=== PATIENT | female | born 1960 | race Caucasian/White ===

== ENCOUNTER 2017-03-11 19:12 | Inpatient (IN) ==
--- NOTE | 2017-03-11 21:14 | Emergency Department Note ---
Disposition Clinical Impression: Cerebrovascular accident Qualifiers: CVA mechanism: other Qualified Code(s): I63.8 - Other cerebral infarction Disposition: Admitted As Inpatient Condition: Good General Adult HPI - General Chief complaint: ED Neuro Symptoms/Deficit Stated complaint: possible tia yesterday weakness in left leg Time Seen by Provider: 03/11/17 20:36 Source: patient Limitations: no limitations Nursing Notes Reviewed: Yes Vital Signs Reviewed: Yes - History of Present Illness HPI Narrative: History began having left lower extremities weakness 24 hours ago while she was in the shower. States that it got better this morning however got worse throughout the day. Now she has a hard time walking because of it. Denies fevers or chills. Denies shortness of breath or chest pain. Pain Scale: 3 - Related Data Home Medications Medication Instructions Recorded Confirmed ALPRAZolam [Xanax 1 MG Tablet] 1 mg PO TID PRN 04/11/16 03/12/17 OLANZapine [Zyprexa] 5 mg PO HS 04/11/16 03/12/17 OXcarbazepine [Oxcarbazepine] 1,200 mg PO HS 04/11/16 03/12/17 OXcarbazepine [Oxcarbazepine] 600 mg PO QAM 04/11/16 03/12/17 Promethazine [Phenergan] 25 mg PO Q6HR PRN 03/12/17 03/12/17 Rizatriptan Benzoate [Maxalt] 5 mg PO DAILY 03/12/17 03/12/17 Allergies Allergy/AdvReac Type Severity Reaction Status Date / Time isosorbide Allergy Vomiting Verified 12/09/15 09:09 Penicillins [PCN] Allergy Rash Verified 05/23/15 11:18 All systems ED: reviewed and negative except as stated. Constitutional: Denies: fever, chills Eyes: Denies: vision change ENT ED: Denies: congestion Cardiovascular: Denies: chest pain, palpitations, syncope Respiratory: Denies: cough, dyspnea, wheezes Gastrointestinal: Denies: abdominal pain, nausea, vomiting, diarrhea, hematemesis, melena, hematochezia Genitourinary: Denies: urgency, dysuria, frequency Musculoskeletal: Reports: other (Left lower extremity weakness.). Denies: back pain, neck pain Integumentary: Denies: rash, abrasion Neurological: Reports: abnormal gait (Due to weakness and left lower extremities.). Denies: headache, weakness, numbness, paresthesias Past Medical History - Past Medical History Attestation: Yes The following information was validated with the patient. Source: patient Medical history: Reports: COPD, coronary artery disease, GERD, hyperlipidemia, hypertension, migraine, other Surgical history: Reports: cholecystectomy, hysterectomy, other (Bladder repair surgeries) Psychiatric history: Reports: anxiety, bipolar, depression - Social History Smoking Status: Current every day smoker Smokeless Tobacco Status: Yes Alcohol use: Reports: none Drug use: Reports: none Physical Exam - General Limitations: no limitations General appearance: alert, in no apparent distress - Head Head exam: atraumatic, normocephalic, normal inspection - Eye Eye exam: Present: normal appearance, PERRL, EOMI. Absent: scleral icterus - ENT ENT exam: normal exam, normal oropharynx, mucous membranes moist - Neck Neck exam: Present: normal inspection, full ROM, trachea midline, other ( Weakness when patient moves her head to the left and tries to press into my hand.) - Chest Chest inspection: Present: normal inspection, symmetric chest wall rise - Respiratory Respiratory exam: Present: normal lung sounds bilaterally. Absent: respiratory distress - Cardiovascular Cardiovascular exam: Present: regular rate, normal rhythm, normal heart sounds - Abdominal Exam Abdominal exam: Present: soft, Non-Tender, normal bowel sounds. Absent: tenderness, distention, guarding, rebound, rigidity, organomegaly - Extremities Exam Extremities exam: Present: normal inspection, full ROM, normal capillary refill , other (Spastic weakness in the left upper and left lower extremity.). Absent : tenderness, pedal edema - Back Exam Back exam: Present: normal inspection, full ROM. Absent: tenderness, CVA tenderness (R), CVA tenderness (L) - Neurological Exam Neurological exam: Present: alert, oriented X3 - Psychiatric Psychiatric exam: Present: normal affect, normal mood - Skin Skin exam: Present: warm, dry, intact, normal color. Absent: rash, cyanosis, diaphoresis, erythema Course Course Narrative: Female patient presenting to emergency department when he developed left lower extremity weakness. She states this started around 5 to 6 PM last night while she was in the shower. She states she noticed that she could not hold herself up on her left leg. States that she had trouble walking after that. However when she woke up this morning she thought that her symptoms have resolved so she went to work. She states that she still had trouble ambulating however it got worse throughout the day. She denies any blurry vision. She denies any left upper extremity weakness. She states that she does get headaches frequently but these are no different than her normal. She states that this is actually very mild headache she has today. She has taken Excedrin for it. On exam she is mentating appropriately. Her pupils are equal and reactive to light. She has no facial droop. She does have left upper extremity spastic movement and weakness. She also has left lower extremity spastic movement and weakness. She has weakness whenever she pushes her head to the left. Her lung sounds are clear heart tones are normal. She tracks well. She has good finger to nose and heel to maldonado. This is never happened to her before. She states she googled her symptoms last night and read that it could possibly be a TIA and it should have resolved within 24 hours however this is not resolved and she is concerned. Patient is out of the window for stroke candidate TPA. We will scan patient's having get a basic lab workup on her. She is complaining of left hip soreness that she states is from how she is having to use her leg since it is so weak. She is refusing pain medication at this time. - Reevaluation(s) Reevaluation #1: We will admit patient to the hospital for serial neurologic exams and neurology consult. - Consultations Consultation #1: Spoke with Dr. Varela is advising to give the patient aspirin and he will see the patient here. Vital Signs Temperature 98.3 F 03/11/17 19:42 Pulse Rate 102 03/11/17 19:42 Respiratory Rate 18 03/11/17 19:42 Blood Pressure 205/97 03/11/17 19:42 O2 Sat by Pulse Oximetry 96 03/11/17 19:42 Temperature 98.3 F 03/12/17 07:02 Pulse Rate 88 03/12/17 07:02 Respiratory Rate 16 03/12/17 07:02 Blood Pressure 133/83 03/12/17 07:02 O2 Sat by Pulse Oximetry 94 03/12/17 07:02 Oxygen Delivery Oxygen Delivery Room Air Medical Decision Making - Medical Records Medical records reviewed: Yes I reviewed the patient's medical records. - Lab Data Lab results reviewed: Yes I reviewed the patient's lab results. Result diagrams: 03/12/17 04:12 03/12/17 04:12 Lab Results 03/11/17 03/11/17 03/11/17 Range/Units 20:58 20:58 21:25 WBC 7.0 (4.3-11.1) K/mcL RBC 4.26 (3.82-4.97) M/mcL Hgb 12.8 (11.5-15.4) g/dL Hct 37.3 (35.3-44.9) % MCV 87.6 (83.0-100.0) fL MCH 30.0 (28.0-33.3) pg MCHC 34.3 (31.6-35.5) g/dL RDW 13.4 (11.5-14.5) % Plt Count 355 (140-400) K/mcL MPV 8.6 L (9.4-12.4) fL Immature Gran % 0.3 (0-4) % Seg Neutrophils % 51.1 % Lymphocytes % 37.0 % Monocytes % 8.9 % Eosinophils % 1.4 % Basophils % 1.3 % Neutrophils # 3.6 (1.6-8.9) K/mcL Lymphocytes # 2.6 (0.6-4.6) K/mcL Monocytes # 0.6 (0.0-1.3) K/mcL Eosinophils # 0.1 (0.0-0.6) K/mcL Basophils # 0.1 (0.0-0.2) K/mcL Immature Plt Fraction 1.6 (1.1-6.1) % Sodium (136-145) mEq/L Potassium (3.5-4.5) mEq/L Chloride (98-109) mEq/L Carbon Dioxide (19-29) mEq/L BUN (7-20) mg/dL Creatinine (0.57-1.11) mg/dL Est GFR ( Amer) (> 60) Est GFR (Non-Af Amer) (> 60) BUN/Creatinine Ratio (6-26) Glucose (70-99) mg/dL Calculated Osmolality (280-300) Calcium (8.6-10.8) mg/dL Phosphorus (2.3-4.7) mg/dL Magnesium (1.6-2.6) mg/dL Total Bilirubin (0.2-1.2) mg/dL AST (5-34) Units/L ALT (0-55) Units/L Alkaline Phosphatase (38-126) Units/L Troponin I (0-0.03) ng/mL Serum Total Protein (6.0-8.3) g/dL Albumin (3.5-5.0) g/dL Globulin (2.4-3.5) g/dL Albumin/Globulin Ratio (1.1-2.2) Urine Color Yellow (Yellow) Urine Clarity Clear (Clear) Urine pH 6.5 (5.0-8.0) pH Units Ur Specific Hendricks 1.011 (1.010-1.025) Urine Protein Negative (Neg-Trace) mg/dL Urine Glucose (UA) Normal (Normal) mg/dL Urine Ketones Negative (Negative) mg/dL Urine Blood Moderate H (Negative) Urine Nitrite Negative (Negative) Urine Bilirubin Negative (Negative) Urine Urobilinogen Normal (Normal) mg/dL Ur Leukocyte Esterase Negative (Negative) Urine Microscopic RBC 0-3 (0-3) per hpf Urine Microscopic WBC 0-3 (0-3) per hpf Ur Squamous Epith Cells Moderate H (None-Few) per lpf Urine Bacteria None Seen (None-Few) per hpf Hyaline Casts None Seen (None-Few) per lpf Ur Culture Indicated? NO (NO) Urine Opiates Screen Negative (Ljrzia=366) ng/mL Ur Barbiturates Screen Negative (Wzceoa=400) ng/mL Ur Phencyclidine Scrn Negative (Cutoff=25) ng/mL Ur Amphetamines Screen Negative (Pzaocr=0852) ng/mL U Benzodiazepines Scrn Negative (Xudcvi=588) ng/mL Urine Cocaine Screen Negative (Cutoff= 300) ng/mL U Marijuana (THC) Screen Negative (Cutoff = 50) ng/mL 03/11/17 03/11/17 Range/Units 21:25 21:25 WBC (4.3-11.1) K/mcL RBC (3.82-4.97) M/mcL Hgb (11.5-15.4) g/dL Hct (35.3-44.9) % MCV (83.0-100.0) fL MCH (28.0-33.3) pg MCHC (31.6-35.5) g/dL RDW (11.5-14.5) % Plt Count (140-400) K/mcL MPV (9.4-12.4) fL Immature Gran % (0-4) % Seg Neutrophils % % Lymphocytes % % Monocytes % % Eosinophils % % Basophils % % Neutrophils # (1.6-8.9) K/mcL Lymphocytes # (0.6-4.6) K/mcL Monocytes # (0.0-1.3) K/mcL Eosinophils # (0.0-0.6) K/mcL Basophils # (0.0-0.2) K/mcL Immature Plt Fraction (1.1-6.1) % Sodium 133 L (136-145) mEq/L Potassium 3.5 (3.5-4.5) mEq/L Chloride 99 (98-109) mEq/L Carbon Dioxide 25 (19-29) mEq/L BUN 9 (7-20) mg/dL Creatinine 0.57 (0.57-1.11) mg/dL Est GFR ( Amer) > 60 (> 60) Est GFR (Non-Af Amer) > 60 (> 60) BUN/Creatinine Ratio 16 (6-26) Glucose 82 (70-99) mg/dL Calculated Osmolality 274 L (280-300) Calcium 9.7 (8.6-10.8) mg/dL Phosphorus 3.6 (2.3-4.7) mg/dL Magnesium 2.1 (1.6-2.6) mg/dL Total Bilirubin < 0.3 (0.2-1.2) mg/dL AST 16 (5-34) Units/L ALT 13 (0-55) Units/L Alkaline Phosphatase 91 (38-126) Units/L Troponin I 0.01 (0-0.03) ng/mL Serum Total Protein 7.8 (6.0-8.3) g/dL Albumin 4.2 (3.5-5.0) g/dL Globulin 3.6 H (2.4-3.5) g/dL Albumin/Globulin Ratio 1.2 (1.1-2.2) Urine Color (Yellow) Urine Clarity (Clear) Urine pH (5.0-8.0) pH Units Ur Specific Hendricks (1.010-1.025) Urine Protein (Neg-Trace) mg/dL Urine Glucose (UA) (Normal) mg/dL Urine Ketones (Negative) mg/dL Urine Blood (Negative) Urine Nitrite (Negative) Urine Bilirubin (Negative) Urine Urobilinogen (Normal) mg/dL Ur Leukocyte Esterase (Negative) Urine Microscopic RBC (0-3) per hpf Urine Microscopic WBC (0-3) per hpf Ur Squamous Epith Cells (None-Few) per lpf Urine Bacteria (None-Few) per hpf Hyaline Casts (None-Few) per lpf Ur Culture Indicated? (NO) Urine Opiates Screen (Utemjd=370) ng/mL Ur Barbiturates Screen (Gzerfz=239) ng/mL Ur Phencyclidine Scrn (Cutoff=25) ng/mL Ur Amphetamines Screen (Kbyvtr=3167) ng/mL U Benzodiazepines Scrn (Filubd=986) ng/mL Urine Cocaine Screen (Cutoff= 300) ng/mL U Marijuana (THC) Screen (Cutoff = 50) ng/mL - Radiology Data Radiology results reviewed: Yes I reviewed the patient's radiology results. Chest X-Ray 03/11/17 21:09 IMPRESSION: Stable portable study. D/ / Clemencia Yuan Cha, MD / Clemencia Yuan Cha, MD Interpreting Provider: Celmencia Yuan Cha, MD Head CT 03/11/17 21:09 IMPRESSION: No acute intracranial abnormality. D/ / Clemencia Yuan Cha, MD / Clemencia Yuan Cha, MD Interpreting Provider: Clemencia Yuan Cha, MD Critical Care Time Critical Care Time: Yes Total Critical Care Time: 45 Attestation: Critical care performed: Time is exclusive of separately billable procedures. Time includes: direct patient care, patient reassessment, coordination of patient care, interpretation of data (laboratory data, radiology data, and respiratory data), review of patient's medical records, medical consultation and documentation of patient care. Procedures included in critical care time: Procedures excluded from critical care time: Attestation Statement - Attestation Attestation: IClemente MD, personally evaluated this patient and discussed their management with the resident physician. I reviewed the resident's note and agree with the documented findings, medical decision making, and plan of care. 57-year-old female presents to the emergency department with a complaint of left -sided weakness which started about 5 PM yesterday. Patient states that she was in the shower and when she tried to raise her right leg to wash it that her left leg was too weak to hold her up and she nearly fell. Said she noticed that she was unable to lift her left leg that time. She denies any numbness or tingling in the leg but states that it was just weak and would not work right. Symptoms have persisted all day today. She thinks it may have slightly improved but is still present. She also however has noticed a little bit of weakness in her left arm as well. She has been able to ambulate but states with some difficulty. She has had daily compensate for the left leg weakness. No difficulty with speech or swallowing. No blurred vision or double vision. No headache. Patient actually states that this is unusual because she has chronic headaches and states that she usually has a left-sided headache all the time but has noticed that today she has not had her usual headache. On examination patient is a well-developed well-nourished well-appearing female in no acute distress. She is alert and oriented 3. There is no cyanosis or diaphoresis. No obvious facial droop. Cranial nerves intact. There is slight weakness of her left patrol guard and left arm as well as some weakness of the left lower extremity. Neck is supple and nontender with full range of motion. No JVD. No carotid bruits. Chest is nontender to palpation. Breath sounds are clear and equal bilaterally. Heart regular rate and rhythm. Abdomen soft and nontender with normal bowel sounds. Head CT negative. Labs reviewed and unremarkable. Chest x-ray negative. The neurologist on-call, Dr. Varela, was consulted and patient was discussed with him. He recommended starting the patient on aspirin and admission by the hospitalist and he will consult on the patient in the hospital. The hospitalist , Dr. Wilson, was consulted and accepted admission of the patient. NIH Stroke Scale - Level of Consciousness LOC: Alert - LOC Questions LOC Questions: Answers both correctly - LOC Commands LOC Commands: Performs both correctly - Best Gaze Best Gaze: Normal - Visual Visual: No visual loss - Facial Palsy Facial Palsy: Normal - Motor Arms Motor Arm-Left: No drift for 10 seconds Motor Arm-Right: No drift for 10 seconds - Motor Legs Motor Leg-Left: No drift for 5 seconds Motor Leg-Right: Drift, does NOT hit bed - Limb Ataxia Limb Ataxia: Absent of affected limb too weak to perform exam - Sensory Sensory: Normal - Best Language Best Language: No aphasia - Dysarthria Dysarthria: Normal - Extinction and Inattention Extinction and Inattention: Normal - NIHSS Total Score NIHSS Total Score: 1
[2017-03-11 21:19] LABS: Bilirubin,Urine Negative (Negative); Blood,Urine Moderate (Negative); Clarity,Urine Clear (Clear); Color,Urine Yellow (Yellow); Glucose,Urine (UA) Normal (Normal); Ketones,Urine Negative (Negative); Leukocyte Esterase,Urine Negative (Negative); Nitrite,Urine Negative (Negative); PH,Urine 6.5 pH Units (5.0-8.0); Protein,Urine Negative (Neg-Trace); Specific Gravity,Urine 1.011 (1.010-1.025); Urobilinogen,Urine Normal (Normal)
[2017-03-11 21:23] LABS: Amphetamine Screen,Urine Negative ng/mL (Cutoff=1000); Barbiturate Screen,Urine Negative ng/mL (Cutoff=200); Benzodiazepines Screen,Urine Negative ng/mL (Cutoff=200); Cannabinoid Screen,Urine Negative ng/mL (Cutoff = 50); Cocaine Screen,Urine Negative ng/mL (Cutoff= 300); Opiate Screen,Urine Negative ng/mL (Cutoff=300); Phencyclidine Screen,Urine Negative ng/mL (Cutoff=25)
[2017-03-11 21:25] LABS: Bacteria,Urine None Seen per hpf (None-Few); Hyaline Casts,Urine None Seen per lpf (None-Few); RBC,Urine 0-3 per hpf (0-3); Squamous Epithelial Cell,Urine Moderate per lpf (None-Few); WBC,Urine 0-3 per hpf (0-3)
[2017-03-11 21:32] LABS: Basophils # 0.1 K/mcL (0.0-0.2); Basophils % 1.3 %; Eosinophils # 0.1 K/mcL (0.0-0.6); Eosinophils % 1.4 %; Hematocrit 37.3 % (35.3-44.9); Hemoglobin 12.8 g/dL (11.5-15.4); Immature Granulocytes % 0.3 % (0-4); Immature Platelets 1.6 % (1.1-6.1); Lymphocytes # 2.6 K/mcL (0.6-4.6); Mean Corpuscular HGB Conc 34.3 g/dL (31.6-35.5); Mean Corpuscular Volume 87.6 fL (83.0-100.0); Mean Platelet Volume 8.6 fL (9.4-12.4); Monocytes # 0.6 K/mcL (0.0-1.3); Monocytes % 8.9 %; Neutrophils # 3.6 K/mcL (1.6-8.9); Platelet Count 355 K/mcL (140-400); Red Blood Count 4.26 M/mcL (3.82-4.97); Red Cell Distribution Width 13.4 % (11.5-14.5); Segmented Neutrophils % 51.1 %
[2017-03-11 21:45] LABS: Alanine Aminotransferase 13 Units/L (0-55); Albumin 4.2 g/dL (3.5-5.0); Albumin/Globulin Ratio 1.2 (1.1-2.2); Alkaline Phosphatase 91 Units/L (38-126); Aspartate Amino Transferase 16 Units/L (5-34); BUN/Creatinine Ratio 16 (6-26); Blood Urea Nitrogen 9 mg/dL (7-20); Calcium 9.7 mg/dL (8.6-10.8); Carbon Dioxide 25 mEq/L (19-29); Chloride 99 mEq/L (98-109); Globulin 3.6 g/dL (2.4-3.5); Glucose 82 mg/dL (70-99); Magnesium 2.1 mg/dL (1.6-2.6); Osmolality,Calculated 274 (280-300); Phosphorous 3.6 mg/dL (2.3-4.7); Potassium 3.5 mEq/L (3.5-4.5); Sodium 133 mEq/L (136-145); Total Protein 7.8 g/dL (6.0-8.3); eGFR For African Americans > 60 (> 60); eGFR For Non-African Americans > 60 (> 60)
[2017-03-11 21:59] LABS: Bilirubin,Total < 0.3 mg/dL (0.2-1.2)
[2017-03-11] MEDS: Nicotine 14 MG PATCH.TD24 TD SCH (22:35)
[2017-03-11] MEDS ORDERED: Aspirin 81 MG TAB.CHEW PO STA (23:42)
[2017-03-12] MEDS ORDERED: Acetaminophen 325 MG TABLET PO ONE (00:40)
[2017-03-12] MEDS: ALPRAZolam 1 MG TABLET PO PRN ×2 (02:40→08:50)
[2017-03-12] MEDS: OLANZapine 5 MG TAB.RAPDIS PO SCH ×2 (02:41→21:46)
--- NOTE | 2017-03-12 03:26 | Internal Med History&Physical ---
<Micah Aggarwal - Last Filed: 03/12/17 03:19> Date of Encounter: 03/12/17 Time of Encounter: 03:19 Assessment and Plan (1) TIA (transient ischemic attack) Current visit: Yes Status: Suspected 57 y/o female presents with LLE weakness sudden onset [address] negative symptoms not resovled Neuro exam: LUE and LLE 3/5 strength with spacticy. Left DTR 1/4 (biceps, triceps, patellar, Achilles), abnormal left finger to nose, abnormal left heel discussion, normal Romberg test, gait: When patient walks she drags her left lower extremity. History of TIA, 2006 with symptoms of right facial drooping and right lower extremity weakness. Not on aspirin or Plavix hx of migraines etiology: TIA vs stroke (symptoms past 24 hours), complex migraines plan: aspirin, statin Echocardiogram, bilateral carotid Dopplers, neurology consult, physical therapy and occupational therapy and speech therapy Every 4 hours neuro checks Cardiac telemetry DVT prophylaxis GI prophylaxis Lipid panel Qualifiers: Transient cerebral ischemia type: unspecified Qualified Code(s): G45.9 - Transient cerebral ischemic attack, unspecified (2) Hemiparesis Current visit: Yes Status: Acute As noted above on neuro exam etiology: stroke vs tia vs complex migraine Plan: continue to monitor for improvement initially patient was unable to lift her LLE against gravity and now she has LUE and LLE strength 3/4. PT/OT consult Qualifiers: Hemiparesis etiology: unspecified Hemiparesis laterality: left dominant side Qualified Code(s): G81.92 - Hemiplegia, unspecified affecting left dominant side (3) Essential hypertension Current visit: Yes Status: Chronic hx of HTN not on any medications Plan: will continue to monitor as BP stable (4) Tafoya's esophagus with esophagitis Current visit: Yes Status: Chronic hx of esopagitis denies abdominal pain plan: omeprazole (5) Anxiety Current visit: Yes Status: Chronic hx of anxiety controlled on xanax plan continue home xanax (6) Bipolar disorder Current visit: Yes Status: Chronic hx of bipolar disorder follows [facility] not signs of danika or depression plan: continue oxycarbazapine and zyprexa Qualifiers: Active/Remission status: in remission of unspecified degree Qualified Code( s): F31.70 - Bipolar disorder, currently in remission, most recent episode unspecified (7) DVT prophylaxis Current visit: Yes Status: Acute heparin SQ Internal Medicine - H&P: HPI Chief complaint: LLE weakness Admitted From: Home Plans for Post Hospital Care: Home History of present illness: Ms. Moses is a 57 year old female presents with left lower extremity weakness. ON evening at 6Pm patient was showering and had sudden onset of LLE weakness described as "my foot felt like jelly". Patient was unable to step out of shower without using her hands to lift her left leg. She did not fall, no head trauma. She lives alone. She then went to sleep. When she woke up the next morning she was able to stand on her left leg but most of her weigh twas on her right leg. She went to work that morning but her lower extremity weakness got worse interms of she was very unsteady with concern for falling. She does not know if she had slurred speech, facial dropping. Denies weakness in other extremities, and denies numbness, dysphagia, changes in vision. Patient has hx of migraines and is on riaztriptan. Denies headache during this incident. Reports hx of TIA in 2006 with right facial droop and right lower extremity wekaness. No infarct was found on imaging at that point according to patient. She was discharged on aspirin and plavix which she has not taken for many years. Past Med Surg Social Fam HX - Past Medical History Medical history: COPD, coronary artery disease, GERD, hyperlipidemia, hypertension, migraine, other Psychiatric history: anxiety, bipolar, depression - Past Surgical History Surgical History: cholecystectomy, hysterectomy, other - Social History Smoking Status: Current every day smoker Packs per day: 2-3 Smokeless Tobacco Status: Yes Alcohol use: none Drug use: none - Family History Mother Adopted: [place]: MIKAEL Age: 83 Family Member Ethnicity: Non- Living Status: Still Living Hx Family Cardiac Disorders: Yes (HTN, A-FIB) Hx Family Respiratory Disorders: No Hx Family Cancer: Yes Hx Family GI Disorders: No Hx Family Genitourinary Disorders: No Hx Family Endocrine Disorder: No Hx Family Musculoskeletal Disorders: No Hx Family Neuromuscular Disorders: No Hx Family Neurologic Disorders: No Hx Family HEENT Disorders: No Hx Family Autoimmune Disorders: No Hx Family Reproductive Disorders: No Hx Family Psychosocial Disorders: No Hx Family Medical Disorders: No Father Living Status: Still Living Hx Family Cardiac Disorders: Yes Hx Family Cancer: Yes Hx Family GI Disorders: Yes Hx Family Endocrine Disorder: Yes Internal Medicine - H&P: Meds ALPRAZolam [Xanax 1 MG Tablet] 1 mg PO TID PRN 04/11/16 [History] OLANZapine [Zyprexa] 5 mg PO HS 04/11/16 [History] OXcarbazepine [Oxcarbazepine] 1,200 mg PO HS 04/11/16 [History] OXcarbazepine [Oxcarbazepine] 600 mg PO QAM 04/11/16 [History] Promethazine [Phenergan] 25 mg PO Q6HR PRN 03/12/17 [History] Rizatriptan Benzoate [Maxalt] 5 mg PO DAILY 03/12/17 [History] 3 Allergy/AdvReac Type Severity Reaction Status Date / Time isosorbide Allergy Vomiting Verified 12/09/15 09:09 Penicillins [PCN] Allergy Rash Verified 05/23/15 11:18 All Systems PM: A 10-system review of systems was performed and is negative for pertinent findings except as documented above in the HPI. Review of systems: Constitutional: Denies fever, chills HEENT: Denies headache, vision changes, neck pain, sore throat, rhinorrhea Heart: Denies chest pain palpitations Lungs: Denies shortness of breath cough Abdomen: Denies abdominal pain nausea vomiting diarrhea Back: Denies back pain Skin: Denies open wounds, rash Kidney: Denies dysuria, hematuria Extremities: Denies swelling, pain Neuro: Reports left lower extremity weakness. as per HPI - Constitutional Vitals: Temp Pulse Resp BP Pulse Ox 98.1 F 87 18 165/91 94 03/12/17 01:51 03/12/17 01:51 03/12/17 01:51 03/12/17 01:51 03/12/17 01:51 - Expanded Neurological Exam Neurological exam expanded: Present: ataxia, protecting the airway. Absent: expressive aphasia Patient oriented to: Present: person, place, time Speech: Absent: slurred Cranial Nerves: EOM's intact PM: Normal, gag reflex PM: Normal, nystagmus PM: Normal, tongue deviation PM: Normal Cerebellar function: finger to nose: Abnormal Left, heel to maldonado: Abnormal Left , Romberg: Abnormal Left Upper motor neuron: Babinski sign: Normal, Suresh neglect: Normal, pronator drift : Abnormal Left, sensory extinction: Normal Sensory exam: lower extremity light touch: Normal, upper extremity light touch: Normal Neuro motor strength exam: LUE: 3, RUE: 5, LLE: 3, RLE: 5 DTR: achilles tendon (L): 1+, achilles tendon (R): 2+, bicep (L): 1+, bicep (R) : 2+, brachioradialis (L): 1+, brachioradialis (R): 2+, patellar (L): 1+, patellar (R): 2+, tricep (L): 1+, tricep (R): 2+ Coma Scale Eye Opening: Spontaneous Coma Scale Motor Response: Obeys Commands Coma Scale Verbal Response: Oriented Coma Scale Total: 15 - Other Additional findings: General: Pleasant, without distress HEENT: Head atraumatic, normocephalic, EOMI, PERRLA, neck nontender to palpation , absent Lymphadenopathy, Moist Mucous Membranes, Heart: Regular rate and rhythm with no murmur Lungs: Clear to auscultation bilaterally Abdomen: Soft nontender, nondistended positive bowel sounds Extremities: Absent pedal edema, Skin: Warm and dry Vascular: Pedal and radialpulses 2 out of 4 Internal Med - H&P Results - Labs CBC & Chem 7: 03/11/17 21:25 03/11/17 21:25 <Artis Prieto - Last Filed: 03/12/17 03:48> Date of Encounter: 03/12/17 Internal Medicine - H&P: HPI History of present illness: Ms. Moses is a 57 year old female All Systems PM: A 10-system review of systems was performed and is negative for pertinent findings except as documented above in the HPI. - Constitutional Vitals: Temp Pulse Resp BP Pulse Ox 98.1 F 87 18 165/91 94 03/12/17 01:51 03/12/17 01:51 03/12/17 01:51 03/12/17 01:51 03/12/17 01:51 Internal Med - H&P Results - Labs CBC & Chem 7: 03/11/17 21:25 03/11/17 21:25 - Diagnostic Studies Chest x-ray Status: image reviewed by me CT scan - head Status: image reviewed by me - Attending Attestation I personally interviewed and examined this patient and my medical decision- making was reviewed with the Resident Physician. I agree with the documented findings, disposition and treatment plan as described. Artis Prieto MD, MPH Hospitalist
[2017-03-12] MEDS: OXcarbazepine 150 MG TABLET PO SCH ×3 (03:37→21:47)
[2017-03-12] MEDS ORDERED: Albuterol 2.5 MG/3 ML NEBULIZER IH PRN (03:46)
[2017-03-12 04:59] LABS: Basophils # 0.1 K/mcL (0.0-0.2); Eosinophils # 0.1 K/mcL (0.0-0.6); Eosinophils % 1.3 %; Hematocrit 35.2 % (35.3-44.9); Hemoglobin 12.1 g/dL (11.5-15.4); Immature Granulocytes % 0.4 % (0-4); Lymphocytes # 2.2 K/mcL (0.6-4.6); Lymphocytes % 31.1 %; Mean Corpuscular HGB Conc 34.4 g/dL (31.6-35.5); Mean Corpuscular Volume 87.1 fL (83.0-100.0); Mean Platelet Volume 9.1 fL (9.4-12.4); Monocytes # 0.6 K/mcL (0.0-1.3); Monocytes % 8.5 %; Platelet Count 339 K/mcL (140-400); Red Blood Count 4.04 M/mcL (3.82-4.97); Red Cell Distribution Width 13.2 % (11.5-14.5); Segmented Neutrophils % 57.7 %
[2017-03-12 05:02] LABS: INR 1.1; Prothrombin Time 12.3 Seconds (9.4-12.1)
[2017-03-12 05:04] LABS: Activated Partial Thrombo Time 28.8 Seconds (26.0-36.0)
[2017-03-12 05:12] LABS: BUN/Creatinine Ratio 17 (6-26); Blood Urea Nitrogen 11 mg/dL (7-20); Calcium 9.7 mg/dL (8.6-10.8); Carbon Dioxide 28 mEq/L (19-29); Chloride 103 mEq/L (98-109); Chol/HDL Ratio 5.9 (0-4.9); Cholesterol 237 mg/dL (< 200); Glucose 114 mg/dL (70-99); HDL Cholesterol 40 mg/dL (40-59); LDL Cholesterol,Calculated 155 mg/dL (0-99); Magnesium 2.3 mg/dL (1.6-2.6); Osmolality,Calculated 284 (280-300); Potassium 3.9 mEq/L (3.5-4.5); Sodium 137 mEq/L (136-145); Triglycerides 210 mg/dL (< 150); eGFR For African Americans > 60 (> 60); eGFR For Non-African Americans > 60 (> 60)
[2017-03-12] MEDS: *HR* Heparin 5,000 UNIT/ML VIAL SQ SCH ×2 (06:06→18:11)
--- NOTE | 2017-03-12 06:14 | Event Note ---
Date of Encounter: 03/12/17 Time of Encounter: 06:09 Received a page from nurse stating that patient wanted to be DNR CC. Patient is 49 y/o female with hx of bipolar, TIA, HTN. Talked to patient about why she does not want life saving measures as she is a healthy young individual, and she states she is afraid that after resusitaiton she will have very poor quaility of life. SHe knows family members who have undergone resuscitation and have not improved afterwards. It was explained to her that she may benefit from a living will which can specifically state what she would want to have done an specific situations. I presented her the option of remaining full code and speaking to positive care in the morning about CODE STATUS and living will however patient states that she would rather be DNR CCA DNI (agreed to medical therapy and other life saving measure that do not involve CPR and intubation) and then speak to palliative care.
[2017-03-12] MEDS: Acetaminophen/Butalbital/CaffeineTABLET PO PRN (06:31)
[2017-03-12] MEDS: Nicotine 14 MG PATCH.TD24 TD SCH (08:51)
[2017-03-12] MEDS: Aspirin 81 MG TAB.CHEW PO SCH (08:51)
--- NOTE | 2017-03-12 12:51 | Event Note ---
Date of Encounter: 03/12/17 Time of Encounter: 12:45 Consult received for code status discussion. Patient has made herself DNR/DNI. UPon my arrival, pt and her daughter Carolyn are present. Patient is alert and oriented, and can discuss her medical history. Discussed code status at length. Patient's daughter Carolyn is RN at [facility] in [place]. She is aware of her mother's decision and supportive. Family has lost many family members to cancer this past year, and have seen many loved ones on life support and coded. Patient adamant on DNR/DNI status - does not want intubated for any resp distress or resp arrest. Discussed if she would consider intubation short term to get over a crises, such as pneumonia, or COPD exacerbation, and she still states she does not wanted intubated. Completed DPOA and pt selected daughter Carolyn at bedside for primary POA and son Beny as alternate. Copies provided to pt and children. Palliative will sign off, - please call if needed.
--- NOTE | 2017-03-12 13:06 | Event Note ---
Date of Encounter: 03/12/17 Time of Encounter: 12:00 Pt seen and examined by me. Patient reports improvement in her LLE weakness. Patient is able to ambulate with out assistance to the bathroom, but is visibly ataxic and limping. Patient 3/5 strength in LLE. Sensation intact to light touch , temperature, and proprioception. Patellar Reflex 1+ on the L 2+ on the R. Achillies reflexes 1+ b/l. CN II-XII intact. LUE (Biceps triceps, delts) 4+/5 compared to 5/5 on the R Patient reports hx of chronic migraines and that she has a headache every single day. She report the weakness was acute in onset and denies fall or back pain. Patient's MRI was negative for new infarct although did show old microvascular disease. Looked over MRI brain with Neurologist Dr. Varela who agreed no acute infarct present. He recommended to finish Stroke work up and that he would see the patient tomorrow. MRI of spine showed "Broad 4 mm left foraminal disc protrusion and facet arthropathy at L4-5 moderately narrowing the left neural foramen, abutting the left L4 nerve root. There is effacement of the left lateral recess and mild spinal canalstenosis as well." Consulted Dr. Andrew of Spine to evaluate the patient. Will finish stroke work up Echo, Carotid doppler. PT/OT/Speech consults. Will follow neurology and spine 's recommendations.
[2017-03-13] MEDS: Acetaminophen/Butalbital/CaffeineTABLET PO PRN ×2 (04:52→21:24)
[2017-03-13 04:58] LABS: Hematocrit 34.4 % (35.3-44.9); Hemoglobin 11.8 g/dL (11.5-15.4); Mean Corpuscular HGB Conc 34.3 g/dL (31.6-35.5); Mean Corpuscular Hemoglobin 31.1 pg (28.0-33.3); Mean Corpuscular Volume 90.5 fL (83.0-100.0); Mean Platelet Volume 9.3 fL (9.4-12.4); Platelet Count 309 K/mcL (140-400)
[2017-03-13 05:12] LABS: BUN/Creatinine Ratio 32 (6-26); Blood Urea Nitrogen 18 mg/dL (7-20); Carbon Dioxide 23 mEq/L (19-29); Chloride 106 mEq/L (98-109); Glucose 92 mg/dL (70-99); Osmolality,Calculated 290 (280-300); Potassium 3.8 mEq/L (3.5-4.5); Sodium 139 mEq/L (136-145); eGFR For African Americans > 60 (> 60); eGFR For Non-African Americans > 60 (> 60)
[2017-03-13] MEDS: *HR* Heparin 5,000 UNIT/ML VIAL SQ SCH ×2 (06:22→16:55)
[2017-03-13] MEDS: Nicotine 14 MG PATCH.TD24 TD SCH (09:27)
[2017-03-13] MEDS: ALPRAZolam 1 MG TABLET PO PRN ×2 (09:28→21:24)
[2017-03-13] MEDS: OXcarbazepine 150 MG TABLET PO SCH ×2 (09:28→21:25)
[2017-03-13] MEDS: Aspirin 81 MG TAB.CHEW PO SCH (09:28)
--- NOTE | 2017-03-13 11:28 | Neurology - Consult Note ---
Date of Encounter: 03/13/17 Time of Encounter: 11:23 Assessment and Plan (1) Left leg weakness Current Visit: Yes Status: Acute Patient with history of s/p cervical spine surgery who developed left leg weakness. Has questionable left arm weakness as well when in ER which may not be reliable. MRI of brain showed no acute infarct. Neuro examination showed weakness in legs, left more than right, reduced knee reflexes on the left side, MRI of lumbar spine showed disc herniation at the L4 abutting nerve root which may be a contributing factor. From neurological perspective will obtain MRI of cervical spine to check possibility of cervical myelopathy History of Present Illness Chief complaint: left leg weakness HPI: Ms. Moses is a 57 year old female with PMH significant for chronic migraine, s/ p cervical spine surgery, bipolar disorder who developed acute onset of left leg weakness. She feels the left arm was okay but she says that when she was examined in the ER they told that her arm was weak as well. She denies back pain though. No radicular type of pain reported. MRI of brain completed and showed no acute infarct. MRI of lumbar spine showed disc herniation at the left L4 abutting nerve root. Clinically, she is still weak to her left leg but denies significant back pain. She has urinary frequency chronically. She has had cervical sine surgery in the past Past Med Surg Social Fam HX - Past Medical History Medical history: COPD, coronary artery disease, GERD, hyperlipidemia, hypertension, migraine, other Psychiatric history: anxiety, bipolar, depression - Past Surgical History Surgical History: cholecystectomy, hysterectomy, other (Bladder repair surgeries ) - Social History Smoking Status: Current every day smoker Packs per day: 2-3 Smokeless Tobacco Status: Yes Alcohol use: none Drug use: none - Family History Mother Adopted: [place]: MIKAEL Age: 83 Family Member Ethnicity: Non- Living Status: Still Living Hx Family Cardiac Disorders: Yes (HTN, A-FIB) Hx Family Respiratory Disorders: No Hx Family Cancer: Yes Hx Family GI Disorders: No Hx Family Genitourinary Disorders: No Hx Family Endocrine Disorder: No Hx Family Musculoskeletal Disorders: No Hx Family Neuromuscular Disorders: No Hx Family Neurologic Disorders: No Hx Family HEENT Disorders: No Hx Family Autoimmune Disorders: No Hx Family Reproductive Disorders: No Hx Family Psychosocial Disorders: No Hx Family Medical Disorders: No Father Living Status: Still Living Hx Family Cardiac Disorders: Yes Hx Family Cancer: Yes Hx Family GI Disorders: Yes Hx Family Endocrine Disorder: Yes Medications and Allergies ALPRAZolam [Xanax 1 MG Tablet] 1 mg PO TID PRN 04/11/16 [History] OLANZapine [Zyprexa] 5 mg PO HS 04/11/16 [History] OXcarbazepine [Oxcarbazepine] 1,200 mg PO HS 04/11/16 [History] OXcarbazepine [Oxcarbazepine] 600 mg PO QAM 04/11/16 [History] Promethazine [Phenergan] 25 mg PO Q6HR PRN 03/12/17 [History] Rizatriptan Benzoate [Maxalt] 10 mg PO AD PRN 03/12/17 [History] 3 Allergy/AdvReac Type Severity Reaction Status Date / Time Penicillins [PCN] Allergy Rash Verified 05/23/15 11:18 isosorbide AdvReac Vomiting Verified 03/12/17 11:35 All Systems: A 10-system review of systems was performed and is negative for pertinent findings except as documented above in the HPI. Physical Examination - Vital Signs Vital Signs: Initial Vital Signs Temp Pulse Resp BP Pulse Ox 98.3 F 102 18 205/97 96 03/11/17 19:42 03/11/17 19:42 03/11/17 19:42 03/11/17 19:42 03/11/17 19:42 - Constitutional General appearance: comfortable - Neurologic Sensorimotor examination: intact Detailed motor examination: other (Weakness to left hip flexion 3+/5, right side 4/5) Motor examination - right side: 4/5: hip flexors, tibialis Anterior, quadriceps , 5/5: deltoids, biceps, triceps, wrist flexion, wrist extension, canal lock tender chief operator, toe extension (EHL), plantarflexion Motor examination - left side: 3/5: hip flexors, quadriceps, 4/5: tibialis Anterior, toe extension (EHL), plantarflexion, 5/5: deltoids, biceps, triceps, wrist flexion, wrist extension, canal lock tender chief operator Reflexes: Biceps: 3+, Triceps: 3+, Brachioradialis: 3+, Patella: 2+ (2/4 to the right 1/4 to the left), Achilles: 0 (absent to the left, 1/4 to the right) Mental Status Examination: awake, alert, oriented to person, oriented to place, oriented to time, follows commands appropriately, answers questions appropriately, no agnosia, no aphasia, no aproxia Cranial nerve examination: PERRL, EOMI, visual tamayo intact, corneal reflexes brisk symmetrically, sensory to face intact, mastication intact, no facial asymmetry is present, no dysarthria, hearing is intact symmetrically, soft palate elevates bilaterally upon phonation, gag reflex intact, flexes SCM and trapezius muscles symmetrically with full power, tongue protrudes midline, no atrophy or facial fasiculations present Results - Laboratory Findings CBC and BMP: 03/13/17 04:22 03/13/17 04:22 Abnormal lab findings: Abnormal lab results RBC 3.80 M/mcL (3.82-4.97) L 03/13/17 04:22 Hct 34.4 % (35.3-44.9) L 03/13/17 04:22 MPV 9.3 fL (9.4-12.4) L 03/13/17 04:22 PT 12.3 Seconds (9.4-12.1) H 03/12/17 04:12 Creatinine 0.56 mg/dL (0.57-1.11) L 03/13/17 04:22 BUN/Creatinine Ratio 32 (6-26) H 03/13/17 04:22 Globulin 3.6 g/dL (2.4-3.5) H 03/11/17 21:25 Triglycerides 210 mg/dL (< 150) H 03/12/17 04:12 Cholesterol 237 mg/dL (< 200) H 03/12/17 04:12 LDL Cholesterol, Calc 155 mg/dL (0-99) H 03/12/17 04:12 VLDL Cholesterol, Calc 42 mg/dL (< 31) H 03/12/17 04:12 Cholesterol/HDL Ratio 5.9 (0-4.9) H 03/12/17 04:12 Urine Blood Moderate (Negative) H 03/11/17 20:58 Ur Squamous Epith Cells Moderate per lpf (None-Few) H 03/11/17 20:58 Consult Discharge Plan - Plan Referrals: Deena Vargas MD [Primary Care Provider] -
--- NOTE | 2017-03-13 11:40 | Internal Med Progress Note ---
<Matt Abrams - Last Filed: 03/13/17 11:37> Date of Encounter: 03/13/17 Time of Encounter: 11:37 - Assessment and plan (1) Left leg weakness Current Visit: Yes Status: Acute Assessment and plan: Continued LLE weakness - strength +3/5 Likely TIA - sudden onset Left leg weakness on 03/10/17 - however, symptoms have not completely resolved. Consider complex migraine as well Head CT showed no acute abnormality. Head MRI showed no acute infarct/ abnormality - less likely CVA MRI spine: "Broad 4 mm left foraminal disc protrusion and facet arthropathy at L4-5 moderately narrowing the left neural foramen, abutting the left L4 nerve root. There is effacement of the left lateral recess and mild spinal canalstenosis as well." History of TIA 2006 - right facial drooping and RLE weakness History of migraines - consider complex migraine as well Previously on ASA, cholesterol medication, BP medication - has not taken these in several years 45 year history of smoking - patient adamant that she will not quit smoking Plan: Echo and Carotid U/S pending Continue ASA and Statin OT/PT and speech therapy Neurology consulted - appreciate recommendations - plan for Spine MRI Ortho consulted - appreciate recommendations (2) Hemiparesis Current Visit: Yes Status: Acute Assessment and plan: Plan as above Continue to monitor for improvement Qualifiers: Hemiparesis etiology: unspecified Hemiparesis laterality: left dominant side Qualified Code(s): G81.92 - Hemiplegia, unspecified affecting left dominant side (3) Essential hypertension Current Visit: Yes Status: Chronic Assessment and plan: History of HTN - not on meds at home Plan: BP elevated through evening - 150s/80s - consider adding HCTZ or SANTA (4) Tafoya's esophagus with esophagitis Current Visit: Yes Status: Chronic Assessment and plan: Denies current abdominal pain or GERD Plan: Omeprazole (5) Anxiety Current Visit: Yes Status: Chronic Assessment and plan: Continue home Xanax (6) Bipolar disorder Current Visit: Yes Status: Chronic Assessment and plan: History of Bipolar - no current signs of Liana Follows with [facility] Plan: Continue Oxycarbazapine and Zyprexa Qualifiers: Active/Remission status: in remission of unspecified degree Qualified Code( s): F31.70 - Bipolar disorder, currently in remission, most recent episode unspecified (7) DVT prophylaxis Current Visit: Yes Status: Acute Assessment and plan: Subq Heparin - Subjective Interval history: Patient seen and examined. She reports she feels well. She thinks her strength is improving in her left leg and she has been trying to do some exercises. Reports chronic headaches and frequent urination. Denies other complaints. Denies dizziness, chest pain, dyspnea, cough, N/V/D, dysuria, back pain, or leg pain/swelling. - Constitutional Vitals: Temp Pulse Resp BP Pulse Ox 98.0 F 94 16 112/72 94 03/13/17 07:39 03/13/17 07:39 03/13/17 07:39 03/13/17 07:39 03/13/17 07:39 General appearance: Present: A&O X 3, no acute distress, answers questions appropriately - Head Head exam: Present: atraumatic, normocephalic - Eye Eye exam: Present: EOMI, conjuntiva pink, sclera anicteric - ENT ENT exam: Present: mucous membranes moist - Respiratory Respiratory exam: Present: CTAB. Absent: rales, rhonchi, wheezes - Cardiovascular Cardiovascular exam: Present: RRR, +S1, +S2. Absent: diastolic murmur, systolic murmur - GI/Abdominal GI/Abdominal exam: Present: normal bowel sounds, soft. Absent: distended, rigid , tenderness - Extremities Exam Extremities exam: Present: warm. Absent: pedal edema, tenderness - Neurological Exam Neurological exam: Present: alert, CN II-XII intact, oriented X3. Absent: facial droop, speech deficit Additional comments: Decreased strength in left LE: +3/5 hip flexors and quadriceps, +4/5 in ankle dorsi/plantarflexion. RLE strength: +4/5 hip flexors and quadriceps. +5/5 in ankle dorsi/ plantarflexion Upper extremity strength +5/5 Internal Medicine: Result - Labs CBC & Chem 7: 03/13/17 04:22 03/13/17 04:22 Labs: Short CBC 03/13/17 Range/Units 04:22 WBC 6.4 (4.3-11.1) K/mcL Hgb 11.8 (11.5-15.4) g/dL Hct 34.4 L (35.3-44.9) % Plt Count 309 (140-400) K/mcL [facility] 03/13/17 04:22 Sodium 139 Potassium 3.8 Chloride 106 Carbon Dioxide 23 BUN 18 Creatinine 0.56 L Glucose 92 Calcium 9.0 - ABG Interpretation ABG results: PT/INR, D-dimer PT 12.3 Seconds (9.4-12.1) H 03/12/17 04:12 Consult Discharge Plan - Plan Referrals: Deena Vargas MD [Primary Care Provider] - <Lencho Xie H - Last Filed: 03/13/17 13:34> Date of Encounter: 03/13/17 - Constitutional Vitals: Temp Pulse Resp BP Pulse Ox 98.0 F 94 16 112/72 94 03/13/17 07:39 03/13/17 07:39 03/13/17 07:39 03/13/17 07:39 03/13/17 07:39 Internal Medicine: Result - Labs CBC & Chem 7: 03/13/17 04:22 03/13/17 04:22 Labs: Short CBC 03/13/17 Range/Units 04:22 WBC 6.4 (4.3-11.1) K/mcL Hgb 11.8 (11.5-15.4) g/dL Hct 34.4 L (35.3-44.9) % Plt Count 309 (140-400) K/mcL [facility] 03/13/17 04:22 Sodium 139 Potassium 3.8 Chloride 106 Carbon Dioxide 23 BUN 18 Creatinine 0.56 L Glucose 92 Calcium 9.0 - ABG Interpretation ABG results: PT/INR, D-dimer PT 12.3 Seconds (9.4-12.1) H 03/12/17 04:12 - Attending Attestation Neurology recommendations appreciated, Ordered MRI of c spine I examined this patient and my medical decision-making was reviewed with the Resident Physician. I agree with the documented findings, disposition and treatment plan as described except to the extent set forth below.
[2017-03-13] MEDS ORDERED: ALPRAZolam 1 MG TABLET PO ONE (12:23)
[2017-03-13] MEDS ORDERED: hydrALAZINE 10 MG TABLET PO PRN (13:22)
[2017-03-13] MEDS: Nicotine 21 MG PATCH.TD24 TD SCH (16:55)
--- NOTE | 2017-03-13 17:04 | Electrocardiograph Report ---
[address] [address] Test Date: 2017-03-11 Pat Name: Katya Moses Department: 102 Room: 3B48 Gender: F Director Of Market Analysis: Rosario : 1960 Requested By: Malia Wright Order Number: [id number] Reading MD: Frantz Mcallister MD Measurements Intervals [place] Rate: 85 P: 56 ND: 208 QRS: 17 QRSD: 95 T: 44 QT: 389 QTc: 431 Interpretive Statements SINUS RHYTHM Electronically Signed On 03-13-2017 17:03:12 EDT by Frantz Mcallister MD
[2017-03-13] MEDS: OLANZapine 5 MG TAB.RAPDIS PO SCH (21:24)
[2017-03-14 04:54] LABS: Hematocrit 31.6 % (35.3-44.9); Hemoglobin 10.8 g/dL (11.5-15.4); Mean Corpuscular HGB Conc 34.2 g/dL (31.6-35.5); Mean Corpuscular Hemoglobin 30.8 pg (28.0-33.3); Platelet Count 287 K/mcL (140-400); Red Blood Count 3.51 M/mcL (3.82-4.97); Red Cell Distribution Width 13.8 % (11.5-14.5)
[2017-03-14 04:55] LABS: BUN/Creatinine Ratio 27 (6-26); Blood Urea Nitrogen 15 mg/dL (7-20); Calcium 8.6 mg/dL (8.6-10.8); Carbon Dioxide 25 mEq/L (19-29); Chloride 104 mEq/L (98-109); Glucose 95 mg/dL (70-99); Osmolality,Calculated 283 (280-300); Potassium 3.5 mEq/L (3.5-4.5); Sodium 136 mEq/L (136-145); eGFR For African Americans > 60 (> 60); eGFR For Non-African Americans > 60 (> 60)
[2017-03-14] MEDS: *HR* Heparin 5,000 UNIT/ML VIAL SQ SCH ×2 (06:24→16:49)
--- NOTE | 2017-03-14 07:07 | Carotid Imaging Report ---
Carotid Duplex Patient Name:Katya Moses Order Number:[id number] Procedure Date:03/13/2017 Date:1960ge:57 yrs Gender:Female Lt BP:137 / 87 mmHg Rt.BP:148 / 96 mmHgHeart Rate: Location:[facility] Room #: 3B48 Field Staff:Joceline Jefferson Referring MD:Micah Aggarwal DO dispatcher street department:Deena Vargas MD Reading MD:Ben Mixon MD Primary Indications:stroke Risk Factors Yes/No Hypertension Yes Hypercholesterolemia Yes Smoking Current Yes Impressions: The bilateral carotid arteries have minimal plaque throughout. Recommendations: After imaging the patient returned to their room. Findings Carotid Duplex: Right: The right proximal common carotid artery has a PSV of 90 cm/s and a EDV of 22 cm/s. The right mid common carotid artery has a PSV of 75 cm/s and a EDV of 25 cm/s. The right distal common carotid artery has a PSV of 105 cm/s and a EDV of 26 cm/s. There is nonstenotic plaque in the right bifurcation with a PSV of 117 cm/s and a EDV of 29 cm/s. There is nonstenotic plaque in the right proximal internal carotid artery with a PSV of 86 cm/s and a EDV of 29 cm/s. The right mid internal carotid artery has a PSV of 84 cm/s and a EDV of 29 cm/s. The right distal internal carotid artery has a PSV of 81 cm/s and a EDV of 28 cm/s. The right eca has a PSV of 83 cm/s and a EDV of 17 cm/s. The right vertebral artery has a PSV of 48 cm/s and a EDV of 16 cm/s. Left: The left proximal common carotid artery has a PSV of 99 cm/s and a EDV of 19 cm/s. There is nonstenotic plaque in the left mid common carotid artery with a PSV of 138 cm/s and a EDV of 32 cm/s. The left distal common carotid artery has a PSV of 111 cm/s and a EDV of 31 cm/s. The left bifurcation has a PSV of 80 cm/s and a EDV of 21 cm/s. The left proximal internal carotid artery has a PSV of 79 cm/s and a EDV of 31 cm/s. The left mid internal carotid artery has a PSV of 97 cm/s and a EDV of 29 cm/s. The left distal internal carotid artery has a PSV of 82 cm/s and a EDV of 24 cm/s. The left eca has a PSV of 108 cm/s and a EDV of 23 cm/s. The left vertebral artery has a PSV of 43 cm/s and a EDV of 12 cm/s. Prior Study: No prior study available for comparison. Carotid Results Right PSV EDV Assessment Proximal CCA 90 22 Normal Mid CCA 75 25 Normal Distal CCA 105 26 Normal Bifurcation 117 29 Non Stenotic Plaque Proximal ICA 86 29 Non Stenotic Plaque Mid ICA 84 29 Normal Distal ICA 81 28 Normal ECA 83 17 Normal Vertebral Artery 48 16 Normal Left PSV EDV Assessment Proximal CCA 99 19 Normal Mid CCA 138 32 Non Stenotic Plaque Distal CCA 111 31 Normal Bifurcation 80 21 Normal Proximal ICA 79 31 Normal Mid ICA 97 29 Normal Distal ICA 82 24 Normal ECA 108 23 Normal Vertebral Artery 43 12 Normal Ratio's Right ICA/CCA Ratio: 1.15 ICA/CCA Values: 86/75 Left ICA/CCA Ratio: 0.70 ICA/CCA Values: 97/138 Updated by Ben Mixon MD on 03/14/2017 7:00:27 AM electronically signed on 03/14/2017 7:00:40 AM with status of Final
[2017-03-14] MEDS: OXcarbazepine 150 MG TABLET PO SCH ×2 (08:01→20:23)
[2017-03-14] MEDS: Nicotine 21 MG PATCH.TD24 TD SCH ×2 (08:05→12:39)
[2017-03-14] MEDS: Aspirin 81 MG TAB.CHEW PO SCH (08:05)
[2017-03-14] MEDS: Acetaminophen/Butalbital/CaffeineTABLET PO PRN (08:07)
[2017-03-14] MEDS ORDERED: Vancomycin 1,000 MG in D5% in Water 250 ML IVPB ONE (08:30)
--- NOTE | 2017-03-14 09:39 | Internal Med Progress Note ---
<Mega Ortez - Last Filed: 03/14/17 10:01> Date of Encounter: 03/14/17 Time of Encounter: 09:39 - Assessment and plan (1) Left leg weakness Current Visit: Yes Status: Acute Assessment and plan: Continued LLE weakness - strength +3/5 sudden onset Left leg weakness on 03/10/17 - Head CT showed no acute abnormality. Head MRI showed no acute infarct/ abnormality MRI spine: "Broad 4 mm left foraminal disc protrusion and facet arthropathy at L4-5 moderately narrowing the left neural foramen, abutting the left L4 nerve root. There is effacement of the left lateral recess and mild spinal canalstenosis as well." Patient seen by Spine this morning who believes bulging dic is cause of her sxs. They plan to add her on for surgery tomorrow. Neurology ordered MRI Cervical spine for today. History of TIA 2006 - right facial drooping and RLE weakness History of migraines - consider complex migraine as well Previously on ASA, cholesterol medication, BP medication - has not taken these in several years 45 year history of smoking - patient adamant that she will not quit smoking Continue ASA and Statin OT/PT and speech therapy Neurology and Spinal Surgery on board. Follow recs. (2) Essential hypertension Current Visit: Yes Status: Chronic Assessment and plan: Chronic Hx of HTN. Not on medication. patient had some elevated BPs over night. Consider adding HCTZ or SANTA (3) Hyperlipidemia Current Visit: No Status: Acute Assessment and plan: Lipid Pannel Showed: Cholesterol 237, LDL 155, VLDL 42, HDL 40, Triglycerides 210 Patient started on Statin. Qualifiers: Hyperlipidemia type: unspecified Qualified Code(s): E78.5 - Hyperlipidemia , unspecified (4) Tafoya's esophagus with esophagitis Current Visit: Yes Status: Chronic Assessment and plan: Chronic, Stable. Patient not complaining of any sxs at this time. Continue PPI (5) Anxiety Current Visit: Yes Status: Chronic Assessment and plan: Chronic, stable. Continue home meds (6) Bipolar disorder Current Visit: Yes Status: Chronic Assessment and plan: Chronic, Stable. Continue home meds Qualifiers: Active/Remission status: in remission of unspecified degree Qualified Code( s): F31.70 - Bipolar disorder, currently in remission, most recent episode unspecified (7) DVT prophylaxis Current Visit: Yes Status: Acute Assessment and plan: Continue Subq Heparin - Subjective Interval history: Patient reports that she is getting stir crazy sitting in bed. Wants to go outside for some fresh air and for a smoke. Encouraged patient not to leave the floor unattended and shared concerns with nursing staff. Per patient Dr. Stubbs saw patient today and believes bulging L4-L5 disc is cause of her symptoms and that he will add her on to surgery for tuesday and that she should be able to be discharged on Tuesday. - Constitutional Vitals: Temp Pulse Resp BP Pulse Ox 98.0 F 82 16 124/83 95 03/14/17 07:40 03/14/17 07:40 03/14/17 07:40 03/14/17 07:40 03/14/17 07:40 General appearance: Present: A&O X 3, no acute distress, answers questions appropriately - Head Head exam: Present: atraumatic, normocephalic - Eye Eye exam: Present: EOMI, PERRL, sclera anicteric Pupils: Present: normal accommodation, PERRL - ENT ENT exam: Present: mucous membranes moist - Neck Neck exam general surgery: Present: supple, trachea midline - Respiratory Respiratory exam: Present: CTAB. Absent: rales, rhonchi, wheezes - Cardiovascular Cardiovascular exam: Present: RRR, +S1, +S2. Absent: diastolic murmur, gallop, rubs, systolic murmur - GI/Abdominal GI/Abdominal exam: Present: normal bowel sounds, soft. Absent: tenderness - Extremities Exam Extremities exam: Present: warm. Absent: pedal edema, tenderness - Neurological Exam Neurological exam: Present: alert, CN II-XII intact, oriented X3. Absent: normal gait Additional comments: LLE 4-/5 Hip flexors, 3/5 knee extensors, 3/5 dorsiflexion, 3/5 EHL. - Expanded Neurological Exam DTR: patellar (L): 1+, patellar (R): 2+ - Psychiatric Psychiatric exam: Present: normal affect, normal mood - Skin Skin exam: Present: dry, warm Internal Medicine: Result - Labs CBC & Chem 7: 03/14/17 04:21 03/14/17 04:21 Labs: Short CBC 03/14/17 Range/Units 04:21 WBC 6.6 (4.3-11.1) K/mcL Hgb 10.8 L (11.5-15.4) g/dL Hct 31.6 L (35.3-44.9) % Plt Count 287 (140-400) K/mcL [facility] 03/14/17 04:21 Sodium 136 Potassium 3.5 Chloride 104 Carbon Dioxide 25 BUN 15 Creatinine 0.55 L Glucose 95 Calcium 8.6 - ABG Interpretation ABG results: PT/INR, D-dimer PT 12.3 Seconds (9.4-12.1) 03/12/17 04:12 Consult Discharge Plan - Plan Referrals: Deena Vargas MD [Primary Care Provider] - <Lencho Xie H - Last Filed: 03/14/17 14:31> Date of Encounter: 03/14/17 - Constitutional Vitals: Temp Pulse Resp BP Pulse Ox 97.9 F 82 16 152/91 97 03/14/17 11:14 03/14/17 11:14 03/14/17 11:14 03/14/17 11:14 03/14/17 11:14 Internal Medicine: Result - Labs CBC & Chem 7: 03/14/17 04:21 03/14/17 04:21 Labs: Short CBC 03/14/17 Range/Units 04:21 WBC 6.6 (4.3-11.1) K/mcL Hgb 10.8 L (11.5-15.4) g/dL Hct 31.6 L (35.3-44.9) % Plt Count 287 (140-400) K/mcL [facility] 03/14/17 04:21 Sodium 136 Potassium 3.5 Chloride 104 Carbon Dioxide 25 BUN 15 Creatinine 0.55 L Glucose 95 Calcium 8.6 - ABG Interpretation ABG results: PT/INR, D-dimer PT 12.3 Seconds (9.4-12.1) 03/12/17 04:12 - Impressions Impressions Cervical Spine MRI 03/14/17 11:40 IMPRESSION: Previous fusion at C6-7. Disc and osteophytes result in stenosis of thecal sac and narrowing of the neural foramina at C4-5 and C5-6 as discussed above. D/ / 03/14/2017 11:56:14 Rebecca Chen MD / nargis Interpreting Provider: Rebecca Chen MD - Attending Attestation surgical procedure considered by Dr Stubbs in the morning C spine MRI pending I examined this patient and my medical decision-making was reviewed with the Resident Physician. I agree with the documented findings, disposition and treatment plan as described except to the extent set forth below.
[2017-03-14] MEDS: ALPRAZolam 1 MG TABLET PO PRN ×2 (12:47→20:23)
--- NOTE | 2017-03-14 18:01 | Neurology Progress Note ---
Date of Encounter: 03/14/17 Time of Encounter: 17:57 Assessment and Plan (1) Left leg weakness Current Visit: Yes Status: Acute Likely caused by lumbar disc disease with radiculopathy, as suggested by Orthopedic surgery. The weakness is associated with reduction of deep tendon reflex to the knee and ankle suggesting lower motor neuron pathology. Othopedic surgery is on board (2) Cervical disc disease Current Visit: Yes Status: Acute Patient reports subtle weakness to the left arm and overall speaking she does not have juanita myelopathic signs. needs clinical monitoring due to possible chronic spinal cord compression at the level of C5-C6. Patient has had surgery at the level of C6-C7 in the past. Patient to follow up with ortho. (3) Chronic migraine Current Visit: Yes Status: Acute Stable. Patient to follow up with me in neurology clinic for treatment of chronic migraine Subjective Principal diagnosis: lumbar disc disease with radiculopathy Interval history: Patient seen and examined. She is doing okay but still has left leg weakness. She completed MRI of cervical spine which showed multiple level of disc herniation most prominent at C5-C6 which may be causing subtle signal changes in the spinal cord at the level. patient denies significant arm weakness but noticed that left arm was shaking when holding a bottle of pop. Patient is right handed Objective - Constitutional Vitals: Temp Pulse Resp BP Pulse Ox 97.7 F 86 16 143/82 96 03/14/17 15:59 03/14/17 15:59 03/14/17 15:59 03/14/17 15:59 03/14/17 15:59 - Neurological Exam Sensorimotor examination: Present: intact Motor Examination: Present: other (Weakness to left hip flexion 3+/5, right side 4/5) Motor examination - left side: 3/5: hip flexors, quadriceps, 4/5: tibialis Anterior, toe extension (EHL), plantarflexion, 5/5: deltoids, biceps, triceps, wrist flexion, wrist extension, business support manager Mental Status Examination: Present: awake, alert, oriented to person, oriented to place, oriented to time, follows commands appropriately, answers questions appropriately, no agnosia, no aphasia, no aproxia Cranial nerve examination: Present: PERRL, EOMI, visual tamayo intact, corneal reflexes brisk symmetrically, sensory to face intact, mastication intact, no facial asymmetry is present, no dysarthria, hearing is intact symmetrically, soft palate elevates bilaterally upon phonation, gag reflex intact, flexes SCM and trapezius muscles symmetrically with full power, tongue protrudes midline, no atrophy or facial fasiculations present Results - Laboratory Findings CBC and BMP: 03/14/17 04:21 03/14/17 04:21 Abnormal lab findings: Abnormal lab results RBC 3.51 M/mcL (3.82-4.97) L 03/14/17 04:21 Hgb 10.8 g/dL (11.5-15.4) L 03/14/17 04:21 Hct 31.6 % (35.3-44.9) L 03/14/17 04:21 MPV 9.0 fL (9.4-12.4) L 03/14/17 04:21 PT 12.3 Seconds (9.4-12.1) H 03/12/17 04:12 Creatinine 0.55 mg/dL (0.57-1.11) L 03/14/17 04:21 BUN/Creatinine Ratio 27 (6-26) H 03/14/17 04:21 Globulin 3.6 g/dL (2.4-3.5) H 03/11/17 21:25 Triglycerides 210 mg/dL (< 150) H 03/12/17 04:12 Cholesterol 237 mg/dL (< 200) H 03/12/17 04:12 LDL Cholesterol, Calc 155 mg/dL (0-99) H 03/12/17 04:12 VLDL Cholesterol, Calc 42 mg/dL (< 31) H 03/12/17 04:12 Cholesterol/HDL Ratio 5.9 (0-4.9) H 03/12/17 04:12 Urine Blood Moderate (Negative) H 03/11/17 20:58 Ur Squamous Epith Cells Moderate per lpf (None-Few) H 03/11/17 20:58 Consult Discharge Plan - Plan Referrals: Deena Vargas MD [Primary Care Provider] -
--- NOTE | 2017-03-14 20:12 | Anesthesia Evaluation PreOp ---
Date of Encounter: 03/14/17 Time of Encounter: 20:11 - Past History Planned Operation: Microdiscetomy Left L4-5 Cardiac History: HTN, Hyperlipidemia, Other (CAD) Pulmonary History: Smoker, Pack/yr (2-3 ppd), COPD UM RN History: TIA (2006), Other (Hemiparesis of unknown origin, Anxiety, Bipolar , Migraines, ataxia) Other Medical History: Other (Barett's esophagus) Anesthesia History: No Prior Anesthetic Complications, Past Anesthesia (GB, ERNESTO , ACDF C5-6? - limited neck extension and slight weakness l. arm) : No Alcohol Use: none Drug use: none Medications and Allergies ALPRAZolam [Xanax 1 MG Tablet] 1 mg PO TID PRN 04/11/16 [History] OLANZapine [Zyprexa] 5 mg PO HS 04/11/16 [History] OXcarbazepine [Oxcarbazepine] 1,200 mg PO HS 04/11/16 [History] OXcarbazepine [Oxcarbazepine] 600 mg PO QAM 04/11/16 [History] Promethazine [Phenergan] 25 mg PO Q6HR PRN 03/12/17 [History] Rizatriptan Benzoate [Maxalt] 10 mg PO AD PRN 03/12/17 [History] 3 Allergy/AdvReac Type Severity Reaction Status Date / Time Penicillins [PCN] Allergy Rash Verified 05/23/15 11:18 isosorbide AdvReac Vomiting Verified 03/12/17 11:35 - Meds/Allergy Pre-op Review Medications Reviewed: Yes Allergies Reviewed: Yes Beta Blockers on Current Med List: Yes If Beta Blockers taken, Date/Time (Last Dose taken): propanolol on a prn basis, last dose 03/12/2017 Anesthesia Results - Labs 03/14/17 04:21 03/14/17 04:21 Echo with Saline Contrast Name: Katya Moses Date of Study: 03/13/2017 Impressions: LVEF 60%. Normal left ventricular size and systolic function. Moderate concentric hypertrophy of the left ventricle. Mild LV diastolic dysfunction. Normal right ventricular size and function. Mild mitral regurgitation. No pulmonary hypertension. Suboptimal saline contrast injection imaging to detect PFO. Stress 04/12/16 EF-67% No ischemia noted At HR max of 95 - Imaging EKG: image reviewed (SR) Anesthesia Exam O2 Sat O2 Sat by Pulse Oximetry 97 O2 Sat by Pulse Oximetry 97 O2 Sat by Pulse Oximetry 96 O2 Sat by Pulse Oximetry 97 O2 Sat by Pulse Oximetry 95 O2 Sat by Pulse Oximetry 94 O2 Sat by Pulse Oximetry 97 Vital Signs Temp Pulse Resp BP Pulse Ox 98.3 F 102 18 205/97 96 03/11/17 19:42 03/11/17 19:42 03/11/17 19:42 03/11/17 19:42 03/11/17 19:42 Vital Signs/O2 Sat, Most Current Temp Pulse Resp BP Pulse Ox 97.7 F 93 15 154/97 97 03/14/17 15:59 03/14/17 19:28 03/14/17 19:28 03/14/17 19:28 03/14/17 20:32 Height: 5'5'' Weight: 136# NPO (# of Hours): > 8 hrs Pain Scale: 0 Pain Scale Used: Numeric (1 - 10) - HEENT Pupil (Motor): Pupils equal, EOMI Mallampati: II Teeth: Edentulous Denture Type: Upper: Complete, Lower: Complete Oral Opening: Greater than 3 - UM RN LOC: Oriented UM RN Motor: Normal RUE, Normal LUE, Normal RLE, Normal LLE, Normal Face UM RN Sensory: Normal: RUE, LUE, RLE, LLE, Face - Cardiac Rhythm: Regular Murmur: None JVD: No Carotid Bruit: No - Pulmonary Breath Sounds: bilateral Clear Respiratory Effort: Symmetrical Anesthesia Assess/Plan ASA Score: 3 Modified Newman Scale for Level of Consciousness: Cooperative, oriented, and tranquil Anesthetic Plan: General Autologous Blood: Yes Monitoring Plan: Standard Monitors
[2017-03-14] MEDS: OLANZapine 5 MG TAB.RAPDIS PO SCH (20:23)
[2017-03-15 04:59] LABS: Hematocrit 31.9 % (35.3-44.9); Hemoglobin 10.5 g/dL (11.5-15.4); Mean Corpuscular HGB Conc 32.9 g/dL (31.6-35.5); Mean Corpuscular Hemoglobin 29.9 pg (28.0-33.3); Mean Corpuscular Volume 90.9 fL (83.0-100.0); Mean Platelet Volume 8.8 fL (9.4-12.4); Platelet Count 302 K/mcL (140-400); Red Blood Count 3.51 M/mcL (3.82-4.97); Red Cell Distribution Width 13.7 % (11.5-14.5)
[2017-03-15 05:19] LABS: BUN/Creatinine Ratio 29 (6-26); Blood Urea Nitrogen 18 mg/dL (7-20); Calcium 8.9 mg/dL (8.6-10.8); Carbon Dioxide 25 mEq/L (19-29); Chloride 105 mEq/L (98-109); Glucose 89 mg/dL (70-99); Osmolality,Calculated 283 (280-300); Potassium 3.7 mEq/L (3.5-4.5); Sodium 136 mEq/L (136-145); eGFR For African Americans > 60 (> 60); eGFR For Non-African Americans > 60 (> 60)
[2017-03-15 05:25] LABS: Activated Partial Thrombo Time 27.2 Seconds (26.0-36.0)
[2017-03-15 05:27] LABS: Prothrombin Time 10.6 Seconds (9.4-12.1)
[2017-03-15] MEDS: *HR* Heparin 5,000 UNIT/ML VIAL SQ SCH (05:46)
--- NOTE | 2017-03-15 07:22 | Spinal Consult Note ---
Date of Encounter: 03/14/17 Time of Encounter: 10:30 Assessment and Plan (1) Lumbar disc herniation Current Visit: Yes Status: Acute On exam she is pleasant and alert. Afebrile vital signs stable. She has a negative straight leg raise. She has a negative Juana sign. She fires all upper extremity motor groups with good strength. She has weakness in the left lower extremity specifically in the quadriceps which is 4 on a motor scale and the tibialis anterior which is 4 minus on a motor scale. She has a diminished left quadriceps reflex. He is otherwise neurovascularly intact with regard to bilateral lower extremities. Her hips move symmetrically. There is no clonus. MRI examination of the lumbar spine reveals a moderate size disc herniation/ extrusion at L4-5 causing moderate severe lateral recess and foraminal stenosis. There are multilevel degenerative changes. Impression: 1) Lumbar disc herniation 2) lumbar radiculopathy 3) focal motor deficit 4) leg weakness with gait impairment Plan: Due to her concerning focal weakness and risk for permanent or further neurologic progression I find it reasonable to consider surgery in the form of a microdiscectomy L4-L5 on the left. Risk benefits and possible palpitations and alternatives were fully discussed with the patient and the patient would like to proceed. We will plan on surgery March 15 after medical optimization and clearance by the hospitalist service. History of Present Illness Chief complaint: Left Leg weakness, difficulty walking HPI: Ms. Moses is a 57 year old female Who is in usual state of health until approximately 1 week ago when she developed left leg weakness, falls, and difficulty walking. She also complained of numbness in the lower extremity. She was later evaluated in the emergency department admitted for definitive evaluation. Workup included possible TIA or CVA and also included MRI of the lumbar spine. We are asked to see patient in regards to left leg weakness and MRI abnormalities. She denies bowel bladder symptoms, fevers or chills. Past Med Surg Social Fam HX - Past Medical History Medical history: COPD, coronary artery disease, GERD, hyperlipidemia, hypertension, migraine, other Psychiatric history: anxiety, bipolar, depression - Past Surgical History Surgical History: cholecystectomy, hysterectomy, other (Bladder repair surgeries ) - Social History Smoking Status: Current every day smoker Packs per day: 2-3 Smokeless Tobacco Status: Yes Alcohol use: none Drug use: none - Family History Mother Adopted: [place]: MIKAEL Age: 83 Family Member Ethnicity: Non- Living Status: Still Living Hx Family Cardiac Disorders: Yes (HTN, A-FIB) Hx Family Respiratory Disorders: No Hx Family Cancer: Yes Hx Family GI Disorders: No Hx Family Genitourinary Disorders: No Hx Family Endocrine Disorder: No Hx Family Musculoskeletal Disorders: No Hx Family Neuromuscular Disorders: No Hx Family Neurologic Disorders: No Hx Family HEENT Disorders: No Hx Family Autoimmune Disorders: No Hx Family Reproductive Disorders: No Hx Family Psychosocial Disorders: No Hx Family Medical Disorders: No Father Living Status: Still Living Hx Family Cardiac Disorders: Yes Hx Family Cancer: Yes Hx Family GI Disorders: Yes Hx Family Endocrine Disorder: Yes Medications and Allergies ALPRAZolam [Xanax 1 MG Tablet] 1 mg PO TID PRN 04/11/16 [History] OLANZapine [Zyprexa] 5 mg PO HS 04/11/16 [History] OXcarbazepine [Oxcarbazepine] 1,200 mg PO HS 04/11/16 [History] OXcarbazepine [Oxcarbazepine] 600 mg PO QAM 04/11/16 [History] Promethazine [Phenergan] 25 mg PO Q6HR PRN 03/12/17 [History] Rizatriptan Benzoate [Maxalt] 10 mg PO AD PRN 03/12/17 [History] 3 Allergy/AdvReac Type Severity Reaction Status Date / Time Penicillins [PCN] Allergy Rash Verified 05/23/15 11:18 isosorbide AdvReac Vomiting Verified 03/12/17 11:35 Results - Labs Result Diagrams: 03/15/17 04:40 03/15/17 04:40 Labs: Abnormal lab results RBC 3.51 M/mcL (3.82-4.97) L 03/15/17 04:40 Hgb 10.5 g/dL (11.5-15.4) L 03/15/17 04:40 Hct 31.9 % (35.3-44.9) L 03/15/17 04:40 MPV 8.8 fL (9.4-12.4) L 03/15/17 04:40 BUN/Creatinine Ratio 29 (6-26) H 03/15/17 04:40 Globulin 3.6 g/dL (2.4-3.5) H 03/11/17 21:25 Triglycerides 210 mg/dL (< 150) H 03/12/17 04:12 Cholesterol 237 mg/dL (< 200) H 03/12/17 04:12 LDL Cholesterol, Calc 155 mg/dL (0-99) H 03/12/17 04:12 VLDL Cholesterol, Calc 42 mg/dL (< 31) H 03/12/17 04:12 Cholesterol/HDL Ratio 5.9 (0-4.9) H 03/12/17 04:12 Urine Blood Moderate (Negative) H 03/11/17 20:58 Ur Squamous Epith Cells Moderate per lpf (None-Few) H 03/11/17 20:58 H & H 03/15/17 Range/Units 04:40 Hgb 10.5 L (11.5-15.4) g/dL Hct 31.9 L (35.3-44.9) % All other labs normal. Consult Discharge Plan - Plan Referrals: Deena Vargas MD [Primary Care Provider] -
[2017-03-15] MEDS ORDERED: Vancomycin 1,000 MG in D5% in Water 250 ML IVPB ONE (08:00)
[2017-03-15] MEDS: Aspirin 81 MG TAB.CHEW PO SCH (08:11)
[2017-03-15] MEDS: OXcarbazepine 150 MG TABLET PO SCH (08:11)
[2017-03-15] MEDS: Nicotine 21 MG PATCH.TD24 TD SCH (08:13)
[2017-03-15] MEDS ORDERED: Lidocaine -MPF 2% 2 ML VIAL ONE ×2 (11:55→12:01)
[2017-03-15] MEDS ORDERED: Dexamethasone 4 MG/ML VIAL ONE (12:00)
[2017-03-15] MEDS ORDERED: *HR* Succinylcholine 200 MG/10 ML VIAL IVP ONE (12:00)
[2017-03-15] MEDS ORDERED: *HR* Rocuronium Bromide 50 MG/5 ML VIAL ONE (12:00)
[2017-03-15] MEDS ORDERED: Ondansetron 4 MG/2 ML VIAL ONE (12:00)
[2017-03-15] MEDS ORDERED: *HR* Propofol 200 MG/20 ML VIAL IVP ONE ×2 (12:01→13:16)
[2017-03-15] MEDS ORDERED: *HR* FentaNYL (PF) 100 MCG/2 ML VIAL ONE ×2 (12:01→12:02)
[2017-03-15] MEDS ORDERED: Lacri-Lube 3.5 GM TUBE ONE (12:10)
[2017-03-15] MEDS ORDERED: EPHEDrine 50 MG/ML VIAL ONE (12:48)
[2017-03-15] MEDS ORDERED: Ondansetron 4 MG/2 ML VIAL IVP ONE (13:06)
[2017-03-15] MEDS ORDERED: *HR* HYDROmorphone (PF) 1 MG/ML SYRINGE IVP PRN (13:06)
--- NOTE | 2017-03-15 13:26 | Orthopedic Operative Note ---
Date of procedure: 03/15/17 Pre-op diagnosis: Lumbar disc herniation, focal motor deficit, lumbar radiculopathy Post-op diagnosis: same Operation/Findings: Microdiscectomy L4-L5 left: The patient was brought to the operative theater and was successfully administered general endotracheal intubation. She was given an antibiotic prior to the start of the procedure. Compression boots and stockings were used for deep vein thrombosis prophylaxis. The patient was turned prone on a Dillon table. The back was prepped and draped in the usual sterile fashion. Incision was marked and centered over the involved L4-L5 interspace in the midline. We used Bovie cautery to enter the lumbar fashion down the involved left side at the L4-L5 level. We reflected the paraspinal musculature to the lateral extent of the left L4-L5 facet joint. We placed and secured at Jenn retractor outside the facet joint. We dislodge the ligamentum flavum on the involved left side from its origin on the undersurface of the L4 lamina. We then removed the ligamentum flavum which allowed us to visualize the thecal sac epidural fat and traversing nerve root. We medialized the traversing nerve root with a dural retractor and identified the L4-L5 disc space. We made an annulotomy into the L4-L5 disc space and removed disc material. We oriented the up-biting pituitary laterally and in foraminal region to remove foraminal disc material. he We decompressed the lateral recess by undercutting the facet joint as well as performed distal foraminotomy to allow room for the nerve root. We also took a small portion of the medial left L4-5 facet. The nerve root had good excursion and could be moved medially and laterally a least 1cm. a curved probe could be passed out the L4-L5 foramen without obstruction. We then copiously irrigated the wound and closed the wound with layers including 1 Vicryl for fascia 2-0 Vicryl for the subcutaneous tissue and Dermabond was used for skin closure. Sterile dressings were placed over the wound, the patient was transferred supine in the hospital bed and extubated. All sponge instrument and needle counts correct at the end procedure. Surgeon: Ben Andrew Jr Estimated blood loss (cc): 17 Condition: stable Disposition: PACU
[2017-03-15] MEDS ORDERED: Esmolol 100 MG/10 ML VIAL IVP ONE (13:29)
[2017-03-15] MEDS ORDERED: Ipratropium/Albuterol Neb 3 ML ONE (13:35)
[2017-03-15] MEDS ORDERED: Naloxone 0.4 MG/ML INJ IVP PRN (14:11)
[2017-03-15] MEDS ORDERED: Ondansetron 4 MG/2 ML VIAL IVP PRN (14:11)
[2017-03-15] MEDS ORDERED: (Rizatriptan Benzoate [Maxalt] 10 MG) PO PRN (14:11)
[2017-03-15] MEDS ORDERED: *HR* Morphine 2 MG/ML SYRINGE IVP PRN (14:11)
[2017-03-15] MEDS ORDERED: Ringers Solution, Lactated 1,000 ML IVC SCH (14:11)
--- NOTE | 2017-03-15 14:19 | Anesthesia Evaluation Post Op ---
Date of Encounter: 03/15/17 Time of Encounter: 14:18 - Vital Signs Vital Signs: Last Vital Signs Temp 97.3 F L 03/15/17 14:15 Pulse 103 03/15/17 14:15 Resp 18 03/15/17 14:15 BP 148/93 03/15/17 14:15 Pulse Ox 94 03/15/17 14:15 - Lungs Lungs: Clear Ascult./Percussion - Airway Airway: Non-obstructed - Cardiovascular Regular Rate - Mental Status Mental Status: Alert & Oriented, Answers Appropriately - Pain Pain Scale: 2 - Nausea Vomiting Nausea Vomiting: Not Present - Hydration Hydration: Ice chips - Discharge PostOp Status: Transfer Patient to floor
[2017-03-15] MEDS ORDERED: Acetaminophen/Butalbital/CaffeineTABLET PO PRN (14:43)
[2017-03-15] MEDS: *HR* OxyCODONE Immed Rel 5 MG TABLET PO PRN (14:50)
[2017-03-15] MEDS: ALPRAZolam 1 MG TABLET PO PRN ×2 (16:25→21:18)
[2017-03-15] MEDS ORDERED: OLANZapine 5 MG TAB.RAPDIS PO SCH (21:00)
[2017-03-15] MEDS ORDERED: OXcarbazepine 150 MG TABLET PO SCH (21:00)
[2017-03-16] MEDS ORDERED: Vancomycin 1,000 MG in D5% in Water 250 ML IVPB ONE
[2017-03-16] MEDS ORDERED: Aspirin 81 MG TAB.CHEW PO SCH (09:00)
[2017-03-16] MEDS ORDERED: Nicotine 21 MG PATCH.TD24 TD SCH (09:00)
[2017-03-16] MEDS ORDERED: OXcarbazepine 150 MG TABLET PO SCH (09:00)
[2017-03-16 10:41] VITALS: BP 114/78
[2017-03-16] MEDS: *HR* OxyCODONE Immed Rel 5 MG TABLET PO PRN (12:02)
[2017-03-16] MEDS: ALPRAZolam 1 MG TABLET PO PRN (12:02)
--- NOTE | 2017-03-16 15:13 | Discharge Summary ---
Date of Encounter: 03/16/17 Time of Encounter: 15:09 - Discharge Diagnosis (1) Left leg weakness Priority: Primary Status: Acute (2) Cervical disc disease Priority: Primary Status: Chronic (3) Lumbar disc herniation Priority: Primary Status: Acute (4) COPD (chronic obstructive pulmonary disease) Priority: Secondary Status: Chronic Qualifiers: COPD type: unspecified COPD Qualified Code(s): J44.9 - Chronic obstructive pulmonary disease, unspecified (5) Tobacco abuse Priority: Secondary Status: Chronic (6) Essential hypertension Priority: Secondary Status: Chronic (7) Hyperlipidemia Priority: Secondary Status: Chronic Qualifiers: Hyperlipidemia type: unspecified Qualified Code(s): E78.5 - Hyperlipidemia , unspecified (8) Coronary artery disease Priority: Secondary Status: Chronic Qualifiers: Coronary Disease-Associated Artery/Lesion type: [place] artery [place] vs. transplanted heart: [place] heart Associated angina: without angina Qualified Code(s): I25.10 - Atherosclerotic heart disease of [place] coronary artery without angina pectoris (9) Anxiety Priority: Secondary Status: Chronic (10) Chronic migraine Priority: Secondary Status: Chronic - Discharge Medications Prescriptions: OxyCODONE Immed Rel [Roxicodone 5 MG] 10 mg PO Q6HR PRN #30 tab PRN Reason: Pain Simvastatin [Zocor] 40 mg PO HS #30 tab Home Medications: ALPRAZolam [Xanax 1 MG Tablet] 1 mg PO TID PRN 04/11/16 [History] OLANZapine [Zyprexa] 5 mg PO HS 04/11/16 [History] OXcarbazepine [Oxcarbazepine] 1,200 mg PO HS 04/11/16 [History] OXcarbazepine [Oxcarbazepine] 600 mg PO QAM 04/11/16 [History] Promethazine [Phenergan] 25 mg PO Q6HR PRN 03/12/17 [History] Rizatriptan Benzoate [Maxalt] 10 mg PO AD PRN 03/12/17 [History] OxyCODONE Immed Rel [Roxicodone 5 MG] 10 mg PO Q6HR PRN #30 tab 03/16/17 [Rx] Simvastatin [Zocor] 40 mg PO HS #30 tab 03/16/17 [Rx] Allergies/Adverse Reactions: 3 Allergy/AdvReac Type Severity Reaction Status Date / Time Penicillins [PCN] Allergy Rash Verified 05/23/15 11:18 isosorbide AdvReac Vomiting Verified 03/12/17 11:35 Procedures/tests Complete & Pending: Procedures Performed prior 72 hours Category Date Time Status MR cervical spine wo con [MR] Routine MRI 03/14/17 11:40 Completed Date of admission: 03/12/17 16:12 Primary care physician: Deena Vargas Consults: 03/15/17 14:11 Consult to Nurse Navigator [CONS] Routine Comment: spine navigator Discharging clinician: Day Cabrera Anticipated date of discharge: 03/16/17 - Patient Status Disposition: Home Health Service Condition: Good Functional capacity at discharge: uses cane/walker Overall status at discharge: patient is progressing back to baseline - Discharge Instructions Follow Up With: Carolyn Yepez PAC [Physician Child Care Sitter] - 03/29/17 10:00 am Deena Vargas MD [Primary Care Provider] - 03/22/17 1:45 pm Additional Instructions: Discharge Instructions: Lumbar Please call [facility] ([phone]), your Primary Care Physician, or report to the ER if you have any of the following symptoms: Fever greater that 101.5, increased pain/redness/drainage/odor for your incision site or any other concerning symptoms. ACTIVITY * May Shower * No Tub Baths * No lifting greater than 10 pounds * No Smoking * No Swimming * No off Ground Activities (Running, Climbing, Ladders, Horseback Riding) * No Driving * * MEDICATIONS: Upon discharge resume your home medications. Take all the medications as prescribed. Take a stool softener if taking narcotic pain medications. Stool softeners are only effective if you drink enough fluids. Drink 6-8 glass of water or fluids a day, unless this is not allowed for another health problem. Despite using stool softeners, if you haven't had a bowel movement in 3 days, please switch to a gentle laxative. Gentle laxatives are sold over the counter. You should have a bowel movement within 24 hours, if not call the office. You will be discharged from the hospital with a prescription for pain medication. You are encouraged to decrease the use of narcotic pain medication as tolerated. Should you require a refill, please call the office. It is best to call 48-72 hours in advance of needing a prescription refill so you don't run out of medication. WOUND CARE: Remove Dressing Tomorrow. Leave incision open to air. Pat dry when you get out of the shower. FOLLOW-UP: Please follow up with your surgeon in the orthopedic clinic in 2 weeks from the day of surgery. References: [place] [employer] (www.[email or web address]) - Diet and Activity Activity: as per physical therapy Diet: low fat, low cholesterol, low salt diet Hospital course: Ms. Moses is a 57 year old female with the above medical problems who was initially admitted with sudden acute onset of left leg weakness and numbness. CT head and MRI brain showed no acute stroke. MRI lumbar spine showed disc protrusion, facet arthropathy at L4/5, affecting L4 now improved. Spine surgery was consulted and patient underwent left-sided microdiscectomy at L4/5 and subsequently began to regain strength and sensation in left lower extremity. Neurology was consulted during this admission and agreed with this management. Acute stroke is ruled out. Lipid profile was noted to show elevated LDL cholesterol and she is being discharged on a statin. Physical and occupational therapy evaluation was done and recommended home health services, referral for this has been completed. Patient is currently medically stable for discharge. - Time Spent with Patient Total time spent providing and/or coordinating discharge services: Greater than 30 minutes (45 min) - Constitutional Vitals: Temp Pulse Resp BP Pulse Ox 98.7 F 89 16 114/78 98 03/16/17 10:07 03/16/17 10:07 03/16/17 10:07 03/16/17 10:07 03/16/17 10:07 General appearance: Present: A&O X 3, answers questions appropriately - Respiratory Respiratory exam: Present: CTAB. Absent: accessory muscle use, rales, rhonchi, wheezes - Cardiovascular Cardiovascular exam: Present: RRR, +S1, +S2. Absent: diastolic murmur, gallop, rubs, systolic murmur - VTE Documentation of Mechanical Device: Intermittent pneumatic compression device
--- NOTE | 2017-03-16 15:22 | Physician Discharge Referral ---
Home Health/Hosp Referral Info Transfer to: Home Health Attending Provider: Day Cabrera Provider in Charge Post Discharge: PCP - Diagnosis (1) Left leg weakness Priority: Primary Status: Acute (2) Cervical disc disease Priority: Primary Status: Chronic (3) Lumbar disc herniation Priority: Primary Status: Acute (4) COPD (chronic obstructive pulmonary disease) Priority: Secondary Status: Chronic (5) Tobacco abuse Priority: Secondary Status: Chronic (6) Essential hypertension Priority: Secondary Status: Chronic (7) Hyperlipidemia Priority: Secondary Status: Chronic (8) Coronary artery disease Priority: Secondary Status: Chronic (9) Anxiety Priority: Secondary Status: Chronic (10) Chronic migraine Priority: Secondary Status: Chronic - Respiratory Orders Smoking Cessation: Smoking cessation has been advised. For more information, call the [employer] Quit Line at 6-086-YEUK-NOW. - Diet/Nutrition Diet/Nutrition Orders: Cardiac - Activity Activity Orders: Ambulate - Services Needed Following services are medically necessary services: Nursing, Physical Therapy, Occupational Therapy - Transfer Medications Prescriptions: OxyCODONE Immed Rel [Roxicodone 5 MG] 10 mg PO Q6HR PRN #30 tab PRN Reason: Pain Simvastatin [Zocor] 40 mg PO HS #30 tab Home Medications: ALPRAZolam [Xanax 1 MG Tablet] 1 mg PO TID PRN 04/11/16 [History] OLANZapine [Zyprexa] 5 mg PO HS 04/11/16 [History] OXcarbazepine [Oxcarbazepine] 1,200 mg PO HS 04/11/16 [History] OXcarbazepine [Oxcarbazepine] 600 mg PO QAM 04/11/16 [History] Promethazine [Phenergan] 25 mg PO Q6HR PRN 03/12/17 [History] Rizatriptan Benzoate [Maxalt] 10 mg PO AD PRN 03/12/17 [History] OxyCODONE Immed Rel [Roxicodone 5 MG] 10 mg PO Q6HR PRN #30 tab 03/16/17 [Rx] Simvastatin [Zocor] 40 mg PO HS #30 tab 03/16/17 [Rx] Allergies/Adverse Reactions: 3 Allergy/AdvReac Type Severity Reaction Status Date / Time Penicillins [PCN] Allergy Rash Verified 05/23/15 11:18 isosorbide AdvReac Vomiting Verified 03/12/17 11:35 Certification: Further, I certify that my clinical findings support that this patient is homebound (i.e. absences from home require considerable and taxing effort and are for medical reasons or protestant services or infrequently or short duration when for other reasons) because: Homebound Reason: Post-surgery restriction and or conditions limit ability to leave home, Leaving home requires considerable and taxing effort due to condition Attestation: My signature below is to certify that this patient is under my care and that I, or nurse practitioner, or a physician's assistant boiler operator working with me, has a face-to -face encounter with this patient.
--- NOTE | 2017-03-16 17:21 | Internal Med Progress Note ---
Date of Encounter: 03/15/17 Time of Encounter: 16:00 - Assessment and plan (1) Left leg weakness Status: Acute Assessment and plan: Patient presented with acute left leg weakness and numbness. MRI lumbar spine shows 4 mm left foraminal disc protrusion and facet arthropathy at L4/5, moderate neuroforaminal narrowing abducting L4 nerve root. Spine surgery consultation and patient underwent left microdiscectomy at L4/5. Pain control with oral Percocet. Physical and occupational therapy evaluation. Neurology evaluation noted. This is less likely CVA. CT head and MRI brain showed no evidence of acute stroke. (2) Cervical disc disease Status: Chronic Assessment and plan: MRI C-spine shows- Previous fusion at C6-7. Disc and osteophytes result in stenosis of thecal sac and narrowing of the neural foramina at C4-5 and C5-6; Neurology f/up appreciated- patient requires outpatient f/up with Spine surgery; left arm weakness currently resolved; (3) Lumbar disc herniation Status: Acute (4) COPD (chronic obstructive pulmonary disease) Status: Chronic Assessment and plan: Not in acute exacerbation. Continue when necessary bronchodilators and supplemental oxygen. Qualifiers: COPD type: unspecified COPD Qualified Code(s): J44.9 - Chronic obstructive pulmonary disease, unspecified (5) Tobacco abuse Status: Chronic Assessment and plan: Patient is currently not motivated to quit smoking. Continue nicotine transdermal patch. (6) Essential hypertension Status: Chronic (7) Hyperlipidemia Status: Chronic Qualifiers: Hyperlipidemia type: unspecified Qualified Code(s): E78.5 - Hyperlipidemia , unspecified (8) Coronary artery disease Status: Chronic Qualifiers: Coronary Disease-Associated Artery/Lesion type: [place] artery [place] vs. transplanted heart: [place] heart Associated angina: without angina Qualified Code(s): I25.10 - Atherosclerotic heart disease of [place] coronary artery without angina pectoris (9) Anxiety Status: Chronic (10) Chronic migraine Status: Chronic - Subjective Interval history: Just returned from spine surgery. Reports improvement in left leg weakness and numbness. Has some back pain at surgical site. - Constitutional Vitals: Temp Pulse Resp BP Pulse Ox 98.7 F 89 16 114/78 98 03/16/17 10:07 03/16/17 10:07 03/16/17 10:07 03/16/17 10:07 03/16/17 10:07 General appearance: Present: A&O X 3, answers questions appropriately - Respiratory Respiratory exam: Present: CTAB. Absent: accessory muscle use, rales, rhonchi, wheezes - Cardiovascular Cardiovascular exam: Present: RRR, +S1, +S2. Absent: diastolic murmur, gallop, rubs, systolic murmur - GI/Abdominal GI/Abdominal exam: Present: normal bowel sounds, soft, no peritoneal signs. Absent: distended, tenderness - Extremities Exam Extremities exam: Present: warm, radial pulses palpable and symmetrical. Absent : calf tenderness, cyanotic, pedal edema - Neurological Exam Neurological exam: Present: CN II-XII intact, oriented X3, no focal deficits (3- 4/5 motor power in left LE). Absent: pronater drift, facial droop, speech deficit Internal Medicine: Result - Labs CBC & Chem 7: 03/15/17 04:40 03/15/17 04:40 - ABG Interpretation ABG results: PT/INR, D-dimer PT 10.6 Seconds (9.4-12.1) 03/15/17 04:40 - VTE Documentation of Mechanical Device: Intermittent pneumatic compression device Consult Discharge Plan - Plan Additional Instructions: Discharge Instructions: Lumbar Please call [facility] ([phone]), your Primary Care Physician, or report to the ER if you have any of the following symptoms: Fever greater that 101.5, increased pain/redness/drainage/odor for your incision site or any other concerning symptoms. ACTIVITY * May Shower * No Tub Baths * No lifting greater than 10 pounds * No Smoking * No Swimming * No off Ground Activities (Running, Climbing, Ladders, Horseback Riding) * No Driving * * MEDICATIONS: Upon discharge resume your home medications. Take all the medications as prescribed. Take a stool softener if taking narcotic pain medications. Stool softeners are only effective if you drink enough fluids. Drink 6-8 glass of water or fluids a day, unless this is not allowed for another health problem. Despite using stool softeners, if you haven't had a bowel movement in 3 days, please switch to a gentle laxative. Gentle laxatives are sold over the counter. You should have a bowel movement within 24 hours, if not call the office. You will be discharged from the hospital with a prescription for pain medication. You are encouraged to decrease the use of narcotic pain medication as tolerated. Should you require a refill, please call the office. It is best to call 48-72 hours in advance of needing a prescription refill so you don't run out of medication. WOUND CARE: Remove Dressing Tomorrow. Leave incision open to air. Pat dry when you get out of the shower. FOLLOW-UP: Please follow up with your surgeon in the orthopedic clinic in 2 weeks from the day of surgery. References: [place] [employer] (www.[email or web address]) Referrals: Carolyn Yepez PAC [Physician Biscuit Factory Worker] - 03/29/17 10:00 am Deena Vargas MD [Primary Care Provider] - 03/22/17 1:45 pm Prescriptions: OxyCODONE Immed Rel [Roxicodone 5 MG] 10 mg PO Q6HR PRN #30 tab PRN Reason: Pain Simvastatin [Zocor] 40 mg PO HS #30 tab
== END 2017-03-16 16:45 | disposition home health service (06) | DRG 519 ==
LOC: 3BNU 19:12 → EMEROO 19:12 → SUATTDRO 03-12 00:30 → 3BNU 03-12 01:10 → SUATTDRO 03-12 16:12 → 3NENU 03-15 14:11
PROVIDERS: ADMIT Internal Medicine; ATTEND Internal Medicine

== ENCOUNTER 2021-09-19 03:09 | Observation (INO) ==
[2021-09-19 04:57] LABS: Basophils # 0.1 K/mcL (0.0-0.2); Basophils % 1.1 %; Eosinophils # 0.2 K/mcL (0.0-0.6); Eosinophils % 2.4 %; Hematocrit 36.4 % (35.3-44.9); Hemoglobin 11.9 g/dL (11.5-15.4); Immature Granulocytes % 0.2 % (0-4); Lymphocytes # 2.9 K/mcL (0.6-4.6); Lymphocytes % 33.8 %; Mean Corpuscular HGB Conc 32.7 g/dL (31.6-35.5); Mean Corpuscular Hemoglobin 29.7 pg (28.0-33.3); Mean Corpuscular Volume 90.8 fL (83.0-100.0); Mean Platelet Volume 10.8 fL (9.4-12.4); Monocytes # 0.7 K/mcL (0.0-1.3); Monocytes % 8.4 %; Neutrophils # 4.6 K/mcL (1.6-8.9); Platelet Count 230 K/mcL (140-400); Red Blood Count 4.01 M/mcL (3.82-4.97); Red Cell Distribution Width 13.2 % (11.5-14.5); Segmented Neutrophils % 54.1 %; White Blood Count 8.5 K/mcL (4.3-11.1)
[2021-09-19 05:31] LABS: Bilirubin,Urine Negative (Negative); Blood,Urine Negative (Negative); Clarity,Urine Clear (Clear); Color,Urine Colorless (Yellow); Glucose,Urine (UA) Normal (Normal); Ketones,Urine Negative (Negative); Leukocyte Esterase,Urine Negative (Negative); Nitrite,Urine Negative (Negative); Protein,Urine Negative (Neg-Trace); Specific Gravity,Urine 1.007 (1.010-1.025); Urobilinogen,Urine Normal (Normal)
[2021-09-19 05:52] LABS: Alanine Aminotransferase 5 Units/L (7-52); Albumin 3.7 g/dL (3.5-5.7); Albumin/Globulin Ratio 1.2 (1.1-2.2); Alkaline Phosphatase 66 Units/L (34-104); Aspartate Amino Transferase 11 Units/L (13-39); BUN/Creatinine Ratio 25 (6-26); Bilirubin,Total 0.2 mg/dL (0.3-1.0); Blood Urea Nitrogen 13 mg/dL (8-23); Calcium 8.4 mg/dL (8.6-10.3); Carbon Dioxide 27 mEq/L (23-29); Chloride 106 mEq/L (98-107); Globulin 3.2 g/dL (2.4-3.5); Glucose 82 mg/dL (70-105); Magnesium 1.9 mg/dL (1.6-2.6); Osmolality,Calculated 285 (280-300); Potassium 3.9 mEq/L (3.5-5.1); Sodium 138 mEq/L (136-145); Thyroid Stimulating Hormone 0.977 mcIU/mL (0.340-5.600); Total Protein 6.9 g/dL (6.4-8.9); Troponin I < 0.03 ng/mL (< 0.04); eGFR For African Americans > 60 (> 60); eGFR For Non-African Americans > 60 (> 60)
[2021-09-19] MEDS ORDERED: Mag Hydrox/Al Hydrox/Simeth 30 ML UDC PO PRN (07:31)
[2021-09-19] MEDS ORDERED: Acetaminophen 325 MG TABLET PO PRN (07:31)
[2021-09-19] MEDS ORDERED: Melatonin 3 MG TABLET PO PRN (07:31)
[2021-09-19] MEDS ORDERED: Ondansetron ODT 4 MG TAB.RAPDIS SL PRN (07:31)
[2021-09-19] MEDS ORDERED: Naloxone 0.4 MG/ML INJ IVP PRN (07:31)
[2021-09-19 09:45] LABS: Influenza A PCR Negative (Negative); Influenza B PCR Negative (Negative); Resp. Syncytial Virus PCR Negative (Negative)
[2021-09-19 09:46] LABS: SARS-CoV-2 by PCR (In House) Negative (Negative)
[2021-09-19] MEDS ORDERED: Perflutren Lipid Microsphere 1.3 ML in 0.9 % Sodium Chloride 8.7 ML IVP PRN (09:52)
[2021-09-19] MEDS: Gabapentin 300 MG CAPSULE PO SCH ×2 (15:45→21:12)
[2021-09-19] MEDS: *HR* Heparin 5,000 UNIT/ML VIAL SQ SCH (17:32)
[2021-09-19] MEDS: Nicotine 21 MG PATCH.TD24 TD SCH (18:29)
[2021-09-19] MEDS: ALPRAZolam 1 MG TABLET PO PRN (21:10)
[2021-09-20] MEDS: *HR* Heparin 5,000 UNIT/ML VIAL SQ SCH (05:15)
[2021-09-20 07:05] LABS: Hematocrit 37.1 % (35.3-44.9); Hemoglobin 12.1 g/dL (11.5-15.4); Mean Corpuscular HGB Conc 32.6 g/dL (31.6-35.5); Mean Corpuscular Hemoglobin 29.4 pg (28.0-33.3); Mean Platelet Volume 10.7 fL (9.4-12.4); Platelet Count 239 K/mcL (140-400); Red Blood Count 4.12 M/mcL (3.82-4.97); Red Cell Distribution Width 13.2 % (11.5-14.5); White Blood Count 8.5 K/mcL (4.3-11.1)
[2021-09-20 07:26] LABS: BUN/Creatinine Ratio 30 (6-26); Blood Urea Nitrogen 16 mg/dL (8-23); Calcium 9.1 mg/dL (8.6-10.3); Carbon Dioxide 25 mEq/L (23-29); Chloride 105 mEq/L (98-107); Glucose 109 mg/dL (70-105); Osmolality,Calculated 286 (280-300); Potassium 3.7 mEq/L (3.5-5.1); Sodium 137 mEq/L (136-145); eGFR For African Americans > 60 (> 60); eGFR For Non-African Americans > 60 (> 60)
[2021-09-20] MEDS ORDERED: Magnesium Oxide 400 MG TABLET PO SCH (09:00)
[2021-09-20] MEDS: Nicotine 21 MG PATCH.TD24 TD SCH (09:01)
[2021-09-20] MEDS: Gabapentin 300 MG CAPSULE PO SCH ×2 (09:03→15:25)
[2021-09-20 11:17] VITALS: TEMP 98.4
[2021-09-20] MEDS: ALPRAZolam 1 MG TABLET PO PRN (15:28)
[2021-09-20 15:57] VITALS: BP 112/81; PULSE 65; O2SAT 93
[2021-09-20] MEDS ORDERED: FLU Vac QV 21-22 (6Month+)/PF 0.5 ML SYRINGE IM ONE (17:36)
== END 2021-09-20 18:45 | disposition home or self-care (01) ==
LOC: EMEROOARM 03:09 → 3NENU 03:09 → SUATTDRO 06:50 → 3NENU 08:36
PROVIDERS: ADMIT Family Medicine; ATTEND Family Medicine

== ENCOUNTER 2021-10-12 12:44 | Observation (INO) ==
[2021-10-12] MEDS ORDERED: Ondansetron 4 MG/2 ML VIAL IVP ONE (12:53)
[2021-10-12] MEDS ORDERED: 0.9 % Sodium Chloride 1,000 ML IVC ONE (12:53)
[2021-10-12] MEDS ORDERED: Isovue-370 500 ML BOTTLE IVP ONE (12:53)
[2021-10-12 13:38] LABS: Activated Partial Thrombo Time 29.9 Seconds (26.0-36.0); INR 1.3; Prothrombin Time 14.1 Seconds (9.4-12.1)
[2021-10-12 13:44] LABS: Hematocrit 36.4 % (35.3-44.9); Mean Corpuscular Hemoglobin 29.6 pg (28.0-33.3); Mean Corpuscular Volume 89.7 fL (83.0-100.0); Mean Platelet Volume 10.1 fL (9.4-12.4); Platelet Count 229 K/mcL (140-400); Red Blood Count 4.06 M/mcL (3.82-4.97); Red Cell Distribution Width 13.1 % (11.5-14.5); White Blood Count 7.8 K/mcL (4.3-11.1)
[2021-10-12 13:52] LABS: BUN/Creatinine Ratio 20 (6-26); Blood Urea Nitrogen 13 mg/dL (8-23); Carbon Dioxide 31 mEq/L (23-29); Chloride 104 mEq/L (98-107); Ethanol < 10 mg/dL (Less than 10); Glucose 103 mg/dL (70-105); Osmolality,Calculated 290 (280-300); Potassium 3.6 mEq/L (3.5-5.1); Sodium 140 mEq/L (136-145); Troponin I < 0.03 ng/mL (< 0.04); eGFR For African Americans > 60 (> 60); eGFR For Non-African Americans > 60 (> 60)
[2021-10-12 14:46] LABS: Amphetamine Screen,Urine Negative ng/mL (Cutoff=1000); Barbiturate Screen,Urine Negative ng/mL (Cutoff=200); Benzodiazepines Screen,Urine Positive ng/mL (Cutoff=200); Cannabinoid Screen,Urine Negative ng/mL (Cutoff = 50); Cocaine Screen,Urine Negative ng/mL (Cutoff= 300); Opiate Screen,Urine Negative ng/mL (Cutoff=300); Phencyclidine Screen,Urine Negative ng/mL (Cutoff=25)
[2021-10-12 14:49] LABS: Bilirubin,Urine Negative (Negative); Blood,Urine Trace (Negative); Clarity,Urine Clear (Clear); Color,Urine Colorless (Yellow); Glucose,Urine (UA) Normal (Normal); Ketones,Urine Negative (Negative); Leukocyte Esterase,Urine Small (Negative); Nitrite,Urine Negative (Negative); PH,Urine 7.5 pH Units (5.0-8.0); Protein,Urine Negative (Neg-Trace); Specific Gravity,Urine > 1.030 (1.010-1.025); Squamous Epithelial Cell,Urine Few per hpf (None-Few); Urobilinogen,Urine Normal (Normal)
[2021-10-12] MEDS ORDERED: Ondansetron 4 MG/2 ML VIAL IVP PRN (16:53)
[2021-10-12] MEDS ORDERED: Naloxone 0.4 MG/ML INJ IVP PRN (16:53)
[2021-10-12] MEDS ORDERED: Ipratropium/Albuterol Neb 3 ML IH PRN (17:18)
[2021-10-12] MEDS: Aspirin Enteric Coated 81 MG Tablet PO SCH (17:54)
[2021-10-12] MEDS: ALPRAZolam 1 MG TABLET PO PRN (20:11)
[2021-10-13 05:22] LABS: Basophils # 0.1 K/mcL (0.0-0.2); Eosinophils # 0.2 K/mcL (0.0-0.6); Eosinophils % 2.5 %; Hematocrit 32.8 % (35.3-44.9); Hemoglobin 11.4 g/dL (11.5-15.4); Immature Granulocytes % 0.2 % (0-4); Lymphocytes # 2.7 K/mcL (0.6-4.6); Lymphocytes % 33.8 %; Mean Corpuscular HGB Conc 34.8 g/dL (31.6-35.5); Mean Corpuscular Hemoglobin 29.7 pg (28.0-33.3); Mean Corpuscular Volume 85.4 fL (83.0-100.0); Mean Platelet Volume 9.9 fL (9.4-12.4); Monocytes # 0.8 K/mcL (0.0-1.3); Neutrophils # 4.2 K/mcL (1.6-8.9); Platelet Count 224 K/mcL (140-400); Red Blood Count 3.84 M/mcL (3.82-4.97); Red Cell Distribution Width 13.1 % (11.5-14.5); Segmented Neutrophils % 52.5 %
[2021-10-13] MEDS: *HR* Heparin 5,000 UNIT/ML VIAL SQ SCH ×2 (05:45→13:34)
[2021-10-13 08:33] LABS: Alanine Aminotransferase 6 Units/L (7-52); Albumin 3.6 g/dL (3.5-5.7); Albumin/Globulin Ratio 1.2 (1.1-2.2); Alkaline Phosphatase 60 Units/L (34-104); Aspartate Amino Transferase 10 Units/L (13-39); BUN/Creatinine Ratio 26 (6-26); Bilirubin,Total 0.3 mg/dL (0.3-1.0); Blood Urea Nitrogen 14 mg/dL (8-23); Calcium 8.8 mg/dL (8.6-10.3); Carbon Dioxide 28 mEq/L (23-29); Chloride 103 mEq/L (98-107); Chol/HDL Ratio 5.5 (0-4.9); Cholesterol 191 mg/dL (< 200); Glucose 99 mg/dL (70-105); HDL Cholesterol 35 mg/dL (40-59); LDL Cholesterol,Calculated 116 mg/dL (< 100); Osmolality,Calculated 285 (280-300); Potassium 3.6 mEq/L (3.5-5.1); Sodium 137 mEq/L (136-145); Total Protein 6.6 g/dL (6.4-8.9); Triglycerides 200 mg/dL (< 150); eGFR For African Americans > 60 (> 60); eGFR For Non-African Americans > 60 (> 60)
[2021-10-13] MEDS: Aspirin Enteric Coated 81 MG Tablet PO SCH (08:38)
[2021-10-13] MEDS ORDERED: Magnesium Oxide 400 MG TABLET PO SCH (09:00)
[2021-10-13 09:46] LABS: Estimated Average Glucose 114 mg/dl; Hemoglobin A1C 5.6 %
[2021-10-13] MEDS: ALPRAZolam 1 MG TABLET PO PRN (13:34)
[2021-10-13 14:51] VITALS: BP 135/77; PULSE 65; TEMP 98.3; O2SAT 92
[2021-10-13 15:52] LABS: Folate 8.7 ng/mL (3.0-16.0)
[2021-10-14] MEDS ORDERED: Cholecalciferol (D-3) 1,000 UNIT (25MCG) TABLET PO SCH (09:00)
[2021-10-14] MEDS ORDERED: Cyanocobalamin (B-12) 1,000 MCG TABLET PO SCH (09:00)
== END 2021-10-13 17:23 | disposition home health service (06) ==
LOC: 3BNU 12:44 → EMEROOARM 12:44 → 3BNU 17:08
PROVIDERS: ADMIT Internal Medicine; ATTEND Internal Medicine